=== PATIENT | female | born 1950 | race Caucasian/White ===

== ENCOUNTER 2021-06-29 01:14 | Inpatient (IN) ==
[2021-06-29] MEDS ORDERED: LACTATED RINGERS 1,000 ML IV ONE ×2 (01:37→03:46)
--- NOTE | 2021-06-29 02:40 | Emergency Department Note ---
HPI General Chief complaint: Altered Mental Status Stated complaint: altered mental status Time Seen by Provider: 06/29/21 01:19 Source: EMS Mode of arrival: ambulatory Limitations: altered mental status History of Present Illness HPI Narrative: Narrative: 71-year-old female history of Sjogren's syndrome, hypertension, anxiety, depression, manic episode, hypothyroid, presenting to the ED for altered mental status/bizarre behavior this seems to have been slowly building over some time but acutely worsened since at least 3 days ago. Patient is altered/not willing or able to answer questions, unable to obtain history from her. History is obtained from zcak Thomas [phone], and the college student who also lives at the patient's house, Hebertpreet [phone]. Neighbor states patient has seemed to have some degree of unknown mental illness for perhaps years now where she would have episodes of acting somewhat manic or bizarre but unsure if ever diagnosed or on any type of treatment. The student who lives with her says she also has had some mild bizarre episodes from time to time but seem to acutely worsen or become confused Monday. Has been pacing, making bizarre and repeated statements. Student said she also tripped and fell once injuring her nose a couple days ago and had to help her up. Does not believe she drinks or uses any substances or started any new medications. No recent travel reported. No known infectious complaints. Neighbor states she used to drink alcohol in years past but stopped more than a year ago. No further history obtainable Related Data Home Medications Medication Instructions Recorded Confirmed albuterol sulfate 90 mcg/actuation 2 puff INHALATION QID PRN 11/21/19 05/03/21 aerosol inhaler (ProAir HFA) clindamycin phosphate 1 % topical 1 applic TOPICAL BID 11/21/19 05/03/21 gel clobetasol 0.05 % topical ointment 1 applic TOPICAL PRN g 11/21/19 05/03/21 diclofenac sodium 1 % topical gel 2 g TOPICAL DIRECTED g 11/21/19 05/03/21 (Voltaren) fluticasone propionate 50 1 spray INTRANASAL .COMPLEX 11/21/19 05/03/21 mcg/actuation nasal spray,suspension ipratropium 0.5 mg-albuterol 3 mg 3 ml INHALATION BID PRN ml 11/21/19 05/03/21 (2.5 mg base)/3 mL nebulization soln ketoconazole 2 % topical cream 1 applic TOPICAL BID 11/21/19 05/03/21 ondansetron HCl 4 mg tablet 4 mg PO Q6H PRN tab 11/21/19 05/03/21 phenazopyridine 200 mg tablet 200 mg PO TID 11/21/19 05/03/21 halobetasol propionate 0.05 % 1 applic TOPICAL BID 12/15/20 05/03/21 topical ointment flaxseed PO 02/22/21 05/03/21 magnesium chloride [magnesium] PO 02/22/21 05/03/21 multivitamin [Daily Multi-Vitamin] PO 02/22/21 05/03/21 zinc gluconate-vitamin C [zinc] PO 02/22/21 05/03/21 Previous Rx's Medication Instructions Recorded lidocaine 5 % topical ointment 1 applic TOPICAL QID PRN #35.44 g 05/27/19 diclofenac epolamine 1.3 % 1 patch TOPICAL Q12H #30 each 12/17/19 transdermal 12 hour patch (Flector) sumatriptan succinate 100 mg 100 mg PO PRN #14 tab 06/18/20 tablet (Imitrex) levothyroxine 100 mcg tablet 100 mcg PO DAILY #30 tab 09/07/20 desonide 0.05 % topical ointment 1 applic TOPICAL BID #15 g 09/10/20 estradiol 0.1 mg/24 hr semiweekly 1 patch TRANSDERMA 2XW #8 each 09/10/20 transdermal patch pentosan polysulfate sodium 100 mg 100 mg PO QID #120 cap 11/05/20 capsule (Elmiron) losartan 100 1 tab PO QDAY #90 tab 12/09/20 mg-hydrochlorothiazide 12.5 mg tablet alprazolam 0.25 mg tablet See Rx Instructions .ROUTE 03/01/21 .COMPLEX #120 unknown measurement unit code: tablet baclofen 20 mg tablet See Rx Instructions .ROUTE 03/09/21 .COMPLEX #120 tab montelukast 10 mg tablet See Rx Instructions .ROUTE 03/09/21 .COMPLEX #30 tab propranolol 120 mg capsule,24 120 mg PO QHS #90 cap 03/09/21 hr,extended release imipramine HCl 50 mg tablet See Rx Instructions .ROUTE 03/16/21 .COMPLEX #60 tab zolpidem 10 mg tablet (Ambien) See Rx Instructions PO QHS #45 tab 04/07/21 cephalexin 500 mg capsule 500 mg PO TID #30 cap 05/07/21 clonidine HCl 0.1 mg tablet See Rx Instructions .ROUTE 05/17/21 .COMPLEX #180 tab triamcinolone acetonide 0.1 % See Rx Instructions .ROUTE 05/17/21 dental paste .COMPLEX #5 g acyclovir 800 mg tablet See Rx Instructions .ROUTE 06/01/21 .COMPLEX #120 tab buprenorphine HCl 8 mg sublingual 8 mg SUBLINGUAL QID #120 tab 06/08/21 tablet Allergies Allergy/AdvReac Type Severity Reaction Status Date / Time No Known Drug Allergies Allergy Verified 05/03/21 09:50 Review of Systems ROS ROS Narrative: Narrative: Unobtainable given acuity PFSH Narrative Patient History Narrative: Narrative: Medical/Surgical/Family History All Active Problems (Updated 06/29/21 @ 07:55 by Nickolas Conklin DO) Acute UTI (Acute) Altered mental status (Acute) Bizarre behavior (Acute) Arthritis of ankle or foot, degenerative (Acute) Facial contusion (Chronic) Interstitial cystitis (Chronic) Increased frequency of urination (Chronic) Dysuria (Chronic) Hematuria (Chronic) Migraine (Chronic) Chronic sinusitis (Chronic) Chronic low back pain (Chronic) Hypothyroid (Chronic) Bilateral carpal tunnel syndrome (Chronic) Squamous cell carcinoma of skin (Chronic) DVT (deep venous thrombosis) (Chronic) Insomnia (Chronic) Anxiety (Chronic) Allergic rhinitis (Chronic) Hyperlipidemia (Chronic) Blepharoconjunctivitis (Chronic) Dermatochalasis of eyelid (Chronic) Age-related nuclear cataract of both eyes (Chronic) Pain with urination (Chronic) Back pain (Chronic) Muscle cramps (Chronic) Muscle stiffness (Chronic) Anxiety disorder due to medical condition (Chronic) Other termination clerk (current) drug therapy (Chronic) Other specified dorsopathies, thoracic region (Chronic) Hypertension, essential, benign (Chronic) half-way (current) use of opiate analgesic (Chronic) Arthritis of right hip (Chronic) Dupuytren's disease (Chronic) Acute rhinitis (Chronic) Acute exacerbation of chronic bronchitis (Chronic) Post-menopausal (Chronic) Asthma (Chronic) Recurrent maxillary sinusitis (Chronic) Bee sting allergy (Chronic) Malignant melanoma of back (Chronic) Tinea corporis (Chronic) Unspecified disorder of muscle, ligament, and fascia (Chronic) Aphthous stomatitis (Chronic) Anemia (Chronic) Arthralgia (Chronic) Trapezius muscle spasm (Chronic) DDD (degenerative disc disease), cervical (Chronic ~05/2003) Gastroparesis (Chronic) Hypertension (Chronic) 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 and external auditory canal (Chronic) Manic episode (Chronic) Acute exacerbation of chronic bronchitis (Chronic) Initial Medicare annual wellness visit (Chronic) Left foot drop (Chronic) Lumbosacral radiculopathy due to degenerative joint disease of spine (Chronic) Acute URI (Chronic) Radiculopathy, lumbar region (Chronic) Breakdown (mechanical) of other implanted electronic stimulator of nervous system, initial encounter (Chronic) Osteoarthritis of right shoulder (Chronic) Muscle pain, myofascial (Chronic) Cervicalgia (Chronic) Shoulder joint pain (Chronic) Encounter for long-term (current) use of other medications (Chronic) Trochanteric bursitis (Chronic) Anxiety disorder (Chronic) Depression (Chronic) GERD (gastroesophageal reflux disease) (Chronic) Cervical radiculopathy (Chronic) Radiculopathy, lumbar region (Acute) Dermatitis (Acute) Elevated antinuclear antibody (ROSALIND) level (Chronic) Eczema (Chronic) ROSALIND positive (Acute) Abnormal immunological finding in serum (Acute) Sjogrens syndrome (Acute) Medical History Abnormal immunological finding in serum Acute exacerbation of chronic bronchitis Acute rhinitis Age-related nuclear cataract of both eyes Allergic rhinitis ROSALIND positive Anemia Anxiety Anxiety disorder Anxiety disorder due to medical condition Aphthous stomatitis Arthralgia Arthritis of right hip Asthma Back pain Bee sting allergy Bilateral carpal tunnel syndrome Blepharoconjunctivitis Breakdown (mechanical) of other implanted electronic stimulator of nervous system, initial encounter Cervical radiculopathy Cervicalgia Chronic low back pain Chronic sinusitis DDD (degenerative disc disease), cervical (~05/2003) W/Radiculopathy. C5-6 left nerve root disc Depression Dermatochalasis of eyelid Right Dupuytren's disease "Of Finger" DVT (deep venous thrombosis) Dysuria Eczema Elevated antinuclear antibody (ROSALIND) level Encounter for long-term (current) use of other medications Facial contusion Gastroparesis GERD (gastroesophageal reflux disease) Hematuria Hyperlipidemia Hypertension benign essential Hypertension, essential, benign Hypothyroid Increased frequency of urination Insomnia Interstitial cystitis buttermaker continuous churn (current) use of opiate analgesic Malignant melanoma of back Manic episode Migraine Muscle cramps Muscle pain, myofascial Muscle stiffness Osteoarthritis of right shoulder Other termination clerk (current) drug therapy Other specified dorsopathies, thoracic region Pain with urination Post-menopausal Radiculopathy, lumbar region Radiculopathy, lumbar region Recurrent maxillary sinusitis Shoulder joint pain Sjogrens syndrome Squamous cell carcinoma of skin Right Ear 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 and external auditory canal Tinea corporis Trapezius muscle spasm Trochanteric bursitis Unspecified disorder of muscle, ligament, and fascia Surgical History History of surgery BRIA #1 w/cath, w/sed 04/14/20 TF NATIVIDAD #1 Lt L4-5 w/o sed 03/18/2007/31 Revision/ Removal of SCS Generator w/ sed 07/20/201801/29 BRIA #1 w/cath, w/o sed 01/15/1801/29 Trigger Point Injection w/o sed 01/15/1801/29 Shoulder Joint Injection, rigth w/o sed 01/15/18 S/P breast biopsy S/P hysterectomy S/P right knee surgery "Meniscus Tear Repair" S/P spinal surgery Spinal Stimulator Status post surgery "Skin Excision" Family History Sister Breast cancer Social History Smoking Status: Unknown if ever smoked Alcohol Intake Frequency: a few times a week Substance Use: does not use Exam Narrative Narrative: Narrative: Constitutional: normally developed, patient ambulated into the ED along with EMS shouting "hello," appears actually quite well-kept, purple dyed hair. No gross signs of trauma Head: Normocephalic, atraumatic, Eyes: No Icterus, PERRLA 4 mm ENT: Dry mucus membranes, no tongue fasciculations Neck: Supple, no midline tenderness Cardiac: Mildly tachycardic regular heart sounds, palpable radial, dorsalis pedis pulses, no peripheral edema Pulmonary: Normal respiratory effort. Breath sounds clear, no wheeze, rhonchi, rales, Gastrointestinal: Abdomen soft, non-distended, non-tender, Musculoskeletal: No gross deformities, well perfused. Extremities are all nontender range of motion intact and atraumatic Skin: warm, dry, no rash no diaphoresis Neuro: Patient appears alert although mostly nonverbal, seems to understand questions and statements and will shake her head in response but will not ve rbalize answers. She is spontaneously moving all 4 extremities with full strength but will not follow commands, if I raise or reposition or lower her extremities she will then hold it in that position. Extraocular movements are intact pupils are equal and responsive, no anisocoria, no clonus, briskly localizes pain in all extremities. Seems to have some aphasia with some nonsensical speech but no dysarthria. GCS 4-3-5, 12. NIH of 6; does not answer questions appropriately, does not follow commands, has questionable aphasia with fragmentary speech, but no dysarthria General Limitations: altered mental status Course Vital Signs Vital signs: Vital Signs Temperature 36.1 C 06/29/21 01:15 Pulse Rate 114 H 06/29/21 01:15 Respiratory Rate 24 H 06/29/21 01:15 Blood Pressure 181/107 06/29/21 01:15 Pulse Oximetry (%) 96 06/29/21 01:15 Temperature 36.1 C 06/29/21 01:15 Pulse Rate 119 H 06/29/21 04:16 Respiratory Rate 24 H 06/29/21 01:15 Blood Pressure 154/114 06/29/21 07:01 Pulse Oximetry (%) 97 06/29/21 04:16 [facility] Narrative Medical decision making narrative: Narrative: Patient is presenting to the ED for altered mental status, bizarre behavior. Exam detailed as above vitals are mildly tachycardic and tachypneic. She appears well Nontoxic but perhaps a bit anxious/bizarre She is moving all 4 extremities with full strength but will not follow commands however does appear to understand all of her questions because she will not in response. She is alert not somnolent. She does not meet any stroke criteria symptoms have been ongoing for at least 3 days if not longer. DDx: mental health, substance use, neurologic, metabolic, infectious, other. Broad work-up is initiated, is given initial fluids. Twelve-lead EKG shows sinus tachycardia 119 WI, QRS, QTc within normal, no acute ischemia noted no terminal R wave in aVR. Head CT shows nonspecific periventricular white matter likely chronic small vessel ischemia, atrophy Urine dip positive for infection Chest x-ray negative CBC no leukocytosis no anemia Electrolytes show no significant abnormality, AST tracely elevated ALT normal, CPK 570 Urinalysis does show infection with nitrates, leukocyte esterase, WBCs, many bacteria Lactic acid is normal 2.0 Ethanol acetaminophen and salicylate negative Urine and blood cultures obtained patient started on Rocephin Reevaluation she appears a bit more comfortable but still confused but answering some questions occasionally and will nod yes or no to questions. Will trial a dose of zyprexa for her bizarre behavior, and also gave her a dose of her clonidine which she is due for, for her hypertension. 0700: Spoke with Dr Abreu neurologist at [place] to discuss case. Discussed in depth, she does not suspect this to be a primary or central neurologic cause nor hypertensive emergency. Suspects this is possibly a flareup of a underlying psychiatric condition secondary to her UTI. Does recommend medical admission here for further treatment of her UTI and behavior and monitor for resolution. Have spoken with Dr. Jc who accepts admission. Lab Data Result diagrams: 06/29/21 01:51 06/29/21 01:50 Labs: Lab Results 06/29/21 06/29/21 06/29/21 Range/Units 01:50 01:51 01:51 WBC 10.6 (4.5-11.0) K/mcL RBC 4.64 (3.59-5.38) M/mcL Hgb 14.8 (11.2-15.7) g/dL Hct 43.1 (34.1-44.9) % MCV 92.9 (80.0-100.0) fL MCH 31.9 (26.0-34.0) pg MCHC 34.3 (31.0-36.0) g/dL RDW 11.6 (11.5-14.5) % Plt Count 272 (140-440) K/mcL MPV 12.0 H (7.4-10.4) fL Neut % (Auto) 77.1 (38.0-78.0) % Lymph % (Auto) 13.1 L (15.5-49.0) % Crowley % (Auto) 9.5 (1.0-12.0) % Eos % (Auto) 0.1 (0.0-7.0) % Baso % (Auto) 0.2 (0.0-2.0) % Lymph # (Auto) 1.39 L (1.50-4.80) K/mcL Crowley # (Auto) 1.01 H (0.10-0.90) K/mcL Eos # (Auto) 0.01 (0.00-0.70) K/mcL Baso # (Auto) 0.02 (0.00-0.30) K/mcL Absolute Neutrophils 8.20 H (1.80-8.00) K/mcL VBG Lactic Acid 2.0 (0.5-2.0) mmol/L Sodium 135 (133-145) mmol/L Potassium 3.5 (3.3-5.1) mmol/L Chloride 95 L (96-108) mmol/L Carbon Dioxide 22 (22-30) mmol/L Anion Gap 18.0 H (8.0-16.0) BUN 22 (8-23) mg/dL Creatinine 0.7 (0.6-1.1) mg/dL GFR Calculation 88 Glucose 110 H (70-105) mg/dL Calcium 9.9 (8.6-10.4) mg/dL Total Bilirubin 0.8 (0.1-1.0) mg/dL AST 52 H (<32) U/L ALT 27 (<40) U/L Alkaline Phosphatase 97 (39-117) U/L Total Creatine Kinase 575 H (24-170) U/L Total Protein 7.4 (5.9-8.4) gm/dL Albumin 4.8 (3.2-5.2) gm/dL Globulin 2.6 (2.2-3.7) gm/dL Albumin/Globulin Ratio 1.8 (1.0-2.3) Urine Color Urine Appearance (Clear) Urine pH (5.0-9.0) Ur Specific [place] (1.000-1.035) Urine Protein (Negative) mg/dL Urine Glucose (UA) (Negative) mg/dL Urine Ketones (Negative) mg/dL Urine Occult Blood (Negative) mg/dL Urine Nitrate (Negative) Urine Bilirubin (Negative) mg/dL Urine Urobilinogen mg/dL Ur Leukocyte Esterase (Negative) /uL Urine RBC (0-3) /hpf Urine WBC (0-4) /hpf Ur Squamous Epith Cells (0-4) /hpf Urine Bacteria (0) /hpf Urine Mucus (None) /hpf Ur Culture Indicated? Salicylates mg/dL Urine Opiates Screen Ur Opiates Confirm Ur Oxycodone Screen Urine Methadone Screen Ur Methadone Confirm Acetaminophen ug/mL Ur Barbiturates Screen Ur Barbiturate Confirm Ur Phencyclidine Scrn Urine PCP Confirm Ur Amphetamines Screen U Amphetamines Confirm U Benzodiazepines Scrn Urine Cocaine Screen Urine Cocaine Confirm U Cannabinoids Confirm U Marijuana (THC) Screen Ethyl Alcohol (<0.010) gm/dL 06/29/21 06/29/21 06/29/21 Range/Units 01:53 01:53 01:53 WBC (4.5-11.0) K/mcL RBC (3.59-5.38) M/mcL Hgb (11.2-15.7) g/dL Hct (34.1-44.9) % MCV (80.0-100.0) fL MCH (26.0-34.0) pg MCHC (31.0-36.0) g/dL RDW (11.5-14.5) % Plt Count (140-440) K/mcL MPV (7.4-10.4) fL Neut % (Auto) (38.0-78.0) % Lymph % (Auto) (15.5-49.0) % Crowley % (Auto) (1.0-12.0) % Eos % (Auto) (0.0-7.0) % Baso % (Auto) (0.0-2.0) % Lymph # (Auto) (1.50-4.80) K/mcL Crowley # (Auto) (0.10-0.90) K/mcL Eos # (Auto) (0.00-0.70) K/mcL Baso # (Auto) (0.00-0.30) K/mcL Absolute Neutrophils (1.80-8.00) K/mcL VBG Lactic Acid (0.5-2.0) mmol/L Sodium (133-145) mmol/L Potassium (3.3-5.1) mmol/L Chloride (96-108) mmol/L Carbon Dioxide (22-30) mmol/L Anion Gap (8.0-16.0) BUN (8-23) mg/dL Creatinine (0.6-1.1) mg/dL GFR Calculation Glucose (70-105) mg/dL Calcium (8.6-10.4) mg/dL Total Bilirubin (0.1-1.0) mg/dL AST (<32) U/L ALT (<40) U/L Alkaline Phosphatase (39-117) U/L Total Creatine Kinase (24-170) U/L Total Protein (5.9-8.4) gm/dL Albumin (3.2-5.2) gm/dL Globulin (2.2-3.7) gm/dL Albumin/Globulin Ratio (1.0-2.3) Urine Color Urine Appearance (Clear) Urine pH (5.0-9.0) Ur Specific [place] (1.000-1.035) Urine Protein (Negative) mg/dL Urine Glucose (UA) (Negative) mg/dL Urine Ketones (Negative) mg/dL Urine Occult Blood (Negative) mg/dL Urine Nitrate (Negative) Urine Bilirubin (Negative) mg/dL Urine Urobilinogen mg/dL Ur Leukocyte Esterase (Negative) /uL Urine RBC (0-3) /hpf Urine WBC (0-4) /hpf Ur Squamous Epith Cells (0-4) /hpf Urine Bacteria (0) /hpf Urine Mucus (None) /hpf Ur Culture Indicated? Salicylates mg/dL Urine Opiates Screen None detected Ur Opiates Confirm TNP Ur Oxycodone Screen None detected Urine Methadone Screen None detected Ur Methadone Confirm TNP Acetaminophen < 5.0 ug/mL Ur Barbiturates Screen None detected Ur Barbiturate Confirm TNP Ur Phencyclidine Scrn None detected Urine PCP Confirm TNP Ur Amphetamines Screen None detected U Amphetamines Confirm TNP U Benzodiazepines Scrn Suspect positive A Urine Cocaine Screen None detected Urine Cocaine Confirm TNP U Cannabinoids Confirm TNP U Marijuana (THC) Screen None detected Ethyl Alcohol < 0.010 (<0.010) gm/dL 06/29/21 06/29/21 Range/Units 01:59 02:09 WBC (4.5-11.0) K/mcL RBC (3.59-5.38) M/mcL Hgb (11.2-15.7) g/dL Hct (34.1-44.9) % MCV (80.0-100.0) fL MCH (26.0-34.0) pg MCHC (31.0-36.0) g/dL RDW (11.5-14.5) % Plt Count (140-440) K/mcL MPV (7.4-10.4) fL Neut % (Auto) (38.0-78.0) % Lymph % (Auto) (15.5-49.0) % Crowley % (Auto) (1.0-12.0) % Eos % (Auto) (0.0-7.0) % Baso % (Auto) (0.0-2.0) % Lymph # (Auto) (1.50-4.80) K/mcL Crowley # (Auto) (0.10-0.90) K/mcL Eos # (Auto) (0.00-0.70) K/mcL Baso # (Auto) (0.00-0.30) K/mcL Absolute Neutrophils (1.80-8.00) K/mcL VBG Lactic Acid (0.5-2.0) mmol/L Sodium (133-145) mmol/L Potassium (3.3-5.1) mmol/L Chloride (96-108) mmol/L Carbon Dioxide (22-30) mmol/L Anion Gap (8.0-16.0) BUN (8-23) mg/dL Creatinine (0.6-1.1) mg/dL GFR Calculation Glucose (70-105) mg/dL Calcium (8.6-10.4) mg/dL Total Bilirubin (0.1-1.0) mg/dL AST (<32) U/L ALT (<40) U/L Alkaline Phosphatase (39-117) U/L Total Creatine Kinase (24-170) U/L Total Protein (5.9-8.4) gm/dL Albumin (3.2-5.2) gm/dL Globulin (2.2-3.7) gm/dL Albumin/Globulin Ratio (1.0-2.3) Urine Color Bridgett Urine Appearance Hazy A (Clear) Urine pH 5.0 (5.0-9.0) Ur Specific [place] 1.025 (1.000-1.035) Urine Protein 30 A (Negative) mg/dL Urine Glucose (UA) Negative (Negative) mg/dL Urine Ketones 20 A (Negative) mg/dL Urine Occult Blood Negative (Negative) mg/dL Urine Nitrate Pos A (Negative) Urine Bilirubin Negative (Negative) mg/dL Urine Urobilinogen Negative mg/dL Ur Leukocyte Esterase 75 A (Negative) /uL Urine RBC 1 (0-3) /hpf Urine WBC 37 H (0-4) /hpf Ur Squamous Epith Cells 0 (0-4) /hpf Urine Bacteria Many A (0) /hpf Urine Mucus Few A (None) /hpf Ur Culture Indicated? yes Salicylates < 0.3 mg/dL Urine Opiates Screen Ur Opiates Confirm Ur Oxycodone Screen Urine Methadone Screen Ur Methadone Confirm Acetaminophen ug/mL Ur Barbiturates Screen Ur Barbiturate Confirm Ur Phencyclidine Scrn Urine PCP Confirm Ur Amphetamines Screen U Amphetamines Confirm U Benzodiazepines Scrn Urine Cocaine Screen Urine Cocaine Confirm U Cannabinoids Confirm U Marijuana (THC) Screen Ethyl Alcohol (<0.010) gm/dL Discharge Plan Patient/Caregiver Discharge Instructions Pt seen by CLIENT TECHNICAL SUPPORT ASSOCIATE/PA only: No Clinical Impression: Acute UTI, Altered mental status, Bizarre behavior Patient Disposition: Xfer As Inpt ([facility]) Condition: Fair Follow up with: Doug Bentley MD [Primary Care Provider] - Prescriptions: No Action lidocaine 5 % ointment 1 applic TOPICAL QID PRN (Reason: pain) Qty: 35.44 5RF diclofenac epolamine [Flector] 1.3 % patch 12 hour 1 patch TOPICAL Q12H Qty: 30 0RF Rx Instructions: apply patch to affected area every 12 hours sumatriptan succinate [Imitrex] 100 mg tablet 100 mg PO PRN Qty: 14 6RF Rx Instructions: 1 po PRN levothyroxine 100 mcg tablet 100 mcg PO DAILY Qty: 30 11RF Elmiron 100 mg capsule 100 mg PO QID Qty: 120 11RF Rx Instructions: 1 po QID losartan-hydrochlorothiazide 100-12.5 mg tablet 1 tab PO QDAY Qty: 90 5RF Rx Instructions: 1 po Qday alprazolam 0.25 mg tablet See Rx Instructions .ROUTE .COMPLEX Qty: 120 5RF Dose Instruction: TAKE 1 TABLET BY MOUTH EVERY 6 HOURS NEEDED FOR ANXIETY Rx Instructions: TAKE 1 TABLET BY MOUTH EVERY 6 HOURS NEEDED FOR ANXIETY propranolol 120 mg capsule,extended release 24 hr 120 mg PO QHS Qty: 90 1RF Rx Instructions: 1 po QHS baclofen 20 mg tablet See Rx Instructions .ROUTE .COMPLEX Qty: 120 5RF Dose Instruction: TAKE 1 TABLET BY MOUTH FOUR TIMES DAILY Rx Instructions: 10mg qid montelukast 10 mg tablet See Rx Instructions .ROUTE .COMPLEX Qty: 30 10RF Dose Instruction: TAKE 1 TABLET BY MOUTH ONCE DAILY Rx Instructions: TAKE 1 TABLET BY MOUTH ONCE DAILY imipramine HCl 50 mg tablet See Rx Instructions .ROUTE .COMPLEX Qty: 60 1RF Dose Instruction: TAKE 1 TABLET BY MOUTH TWICE DAILY NEEDS FOLLOW UP PLEASE CONTACT DR OFFICE Rx Instructions: TAKE 1 TABLET BY MOUTH TWICE DAILY NEEDS FOLLOW UP PLEASE CONTACT DR OFFICE zolpidem [Ambien] 10 mg tablet See Rx Instructions PO QHS Qty: 45 2RF Rx Instructions: 10mg, 1-2 tabs PO QHS; triamcinolone acetonide 0.1 % paste See Rx Instructions .ROUTE .COMPLEX Qty: 5 4RF Dose Instruction: APPLY TWICE DAILY AFTER FOOD / DRINK OR ORAL HYGIENE Rx Instructions: APPLY TWICE DAILY AFTER FOOD / DRINK OR ORAL HYGIENE clonidine HCl 0.1 mg tablet See Rx Instructions .ROUTE .COMPLEX Qty: 180 3RF Dose Instruction: TAKE 1 TABLET BY MOUTH TWICE DAILY Rx Instructions: TAKE 1 TABLET BY MOUTH TWICE DAILY acyclovir 800 mg tablet See Rx Instructions .ROUTE .COMPLEX Qty: 120 5RF Dose Instruction: TAKE 1 TABLET BY MOUTH FOUR TIMES DAILY Rx Instructions: TAKE 1 TABLET BY MOUTH FOUR TIMES DAILY buprenorphine HCl 8 mg tablet, sublingual 8 mg SUBLINGUAL QID Qty: 120 0RF phenazopyridine 200 mg tablet 200 mg PO TID 0RF Rx Instructions: 1 po TID diclofenac sodium [Voltaren] 1 % gel 2 g TOPICAL DIRECTED 0RF Rx Instructions: apply to affected area as directed fluticasone propionate 50 mcg/actuation spray,suspension 1 spray INTRANASAL .COMPLEX 0RF Label Comments: 1 spray INTRANASAL ; Rx Instructions: 1 spray each nostril albuterol sulfate [ProAir HFA] 90 mcg/actuation HFA aerosol inhaler 2 puff INHALATION QID PRN (Reason: Wheezing) 0RF Rx Instructions: 2 puffs QID PRN on HOLD ondansetron HCl 4 mg tablet 4 mg PO Q6H PRN (Reason: Nausea) 0RF Rx Instructions: 1 po Q 5 hours Prn clindamycin phosphate 1 % gel 1 applic TOPICAL BID 0RF Rx Instructions: apply to affected area twice daily ketoconazole 2 % cream 1 applic TOPICAL BID 0RF Rx Instructions: apply BID to face ipratropium-albuterol 0.5 mg-3 mg(2.5 mg base)/3 mL solution for nebulization 3 ml INHALATION BID PRN (Reason: Wheezing) 0RF Rx Instructions: 1 vial in nebulizer BID x 7 days zinc gluconate-vitamin C [zinc] PO 0RF magnesium chloride [magnesium] PO 0RF multivitamin [Daily Multi-Vitamin] PO 0RF flaxseed PO 0RF desonide 0.05 % ointment 1 applic TOPICAL BID Qty: 15 5RF estradiol 0.1 mg/24 hr patch semiweekly 1 patch TRANSDERMA 2XW Qty: 8 12RF Rx Instructions: apply 1 patch for 3 days alternating with 1 patch for 4 days each week for 3 wks per 4-wk cycle cephalexin 500 mg capsule 500 mg PO TID Qty: 30 1RF halobetasol propionate 0.05 % ointment 1 applic topical BID 0RF clobetasol 0.05 % ointment 1 applic TOPICAL PRN 0RF Rx Instructions: PRN
--- NOTE | 2021-06-29 03:01 | XRay Report ---
CLINICAL INFORMATION: Acute mental status change COMPARISON: 08/09/2018 TECHNIQUE: Portable FINDINGS: The heart size, mediastinum and pulmonary vessels are unremarkable. The lungs are clear. There are no effusions. The bones and soft tissues are within normal limits. IMPRESSION: Normal chest. Interpreted and Authenticated by: Rubén Phillips 06/29/21
[2021-06-29 03:05] LABS: Basophils # (Auto) 0.02 K/mcL (0.00-0.30); Basophils % (Auto) 0.2 % (0.0-2.0); Eosinophils # (Auto) 0.01 K/mcL (0.00-0.70); Eosinophils % (Auto) 0.1 % (0.0-7.0); Hematocrit 43.1 % (34.1-44.9); Hemoglobin 14.8 g/dL (11.2-15.7); Lymphocytes # (Auto) 1.39 K/mcL (1.50-4.80); Lymphocytes % (Auto) 13.1 % (15.5-49.0); Mean Cell Volume 92.9 fL (80.0-100.0); Mean Corpuscular HGB Conc 34.3 g/dL (31.0-36.0); Monocytes # (Auto) 1.01 K/mcL (0.10-0.90); Monocytes % (Auto) 9.5 % (1.0-12.0); Neutrophils % (Auto) 77.1 % (38.0-78.0); Platelet Count 272 K/mcL (140-440); RBC 4.64 M/mcL (3.59-5.38); Red Cell Distribution Width 11.6 % (11.5-14.5); WBC 10.6 K/mcL (4.5-11.0)
--- NOTE | 2021-06-29 03:07 | Cat Scan Report ---
CLINICAL INFORMATION: Altered mental status COMPARISON: None. TECHNIQUE: 2.5 mm helical slices were obtained in the skull base to vertex. Following reconstruction, axial reformatted images were reviewed at bone and parenchymal windows. The exam was performed using radiation dose optimization techniques including, but not limited to, automated exposure control, adjustment of the mA and/or kV according to patient size and use of iterative reconstruction technique. FINDINGS: The ventricles, sulci, fissures, and cisterns are normal in size and configuration. No extra-axial fluid collections are identified. The cerebrum, brainstem and cerebellum are unremarkable. There is no evidence of hemorrhage, mass effect, or edema. Bone windows show mild enlargement and sclerosis of the left mandibular condyle which may be stigmata of remote trauma or inflammation. IMPRESSION: No intracerebral abnormality. Interpreted and Authenticated by: Rubén Phillips 06/29/21
[2021-06-29 03:16] LABS: Appearance,Urine HAZY (Clear); Bacteria,Urine MANY /hpf (0); Bilirubin,Urine Negative (Negative); Color,Urine AMBER; Culture Indicated,Urine yes; Glucose,Urine (UA) Negative (Negative); Ketones,Urine 20 mg/dL (Negative); Leukocyte Esterase,Urine 75 /uL (Negative); Mucus,Urine FEW /hpf; Nitrate,Urine POS (Negative); Protein,Urine 30 mg/dL (Negative); Specific Gravity,Urine 1.025 (1.000-1.035); Urine Blood Negative (Negative); Urine RBC 1 /hpf (0-3); Urine Squamous Epithelial Cell 0 /hpf (0-4); Urine WBC 37 /hpf (0-4); Urobilinogen,Urine Negative
[2021-06-29 03:34] LABS: ALT/SGPT 27 U/L (<40); AST/SGOT 52 U/L (<32); Albumin 4.8 gm/dL (3.2-5.2); Albumin/Globulin Ratio 1.8 (1.0-2.3); Alkaline Phosphatase 97 U/L (39-117); Bilirubin,Total 0.8 mg/dL (0.1-1.0); Blood Urea Nitrogen 22 mg/dL (8-23); Calcium 9.9 mg/dL (8.6-10.4); Carbon Dioxide 22 mmol/L (22-30); Chloride 95 mmol/L (96-108); Creatine Kinase 575 U/L (24-170); Globulin 2.6 gm/dL (2.2-3.7); Glomerular Filtration Rate 88; Glucose 110 mg/dL (70-105)
[2021-06-29 03:39] LABS: Alcohol, Blood < 10.0 mg/dL; Alcohol,Blood < 0.010 gm/dL (<0.010)
[2021-06-29] MEDS ORDERED: cefTRIAXone 1 GM VIAL IV ONE (03:42)
[2021-06-29 04:46] LABS: Amphetamine Screen,Urine None detected; Barbiturate Screen,Urine None detected; Benzodiazepines Screen,Urine Suspect positive; Cannabinoid Screen,Urine None detected; Cocaine Screen,Urine None detected; Opiate Screen,Urine None detected; Oxycodone, Urine Screen None detected; Phencyclidine Screen,Urine None detected
[2021-06-29] MEDS ORDERED: cloNIDine HCL 0.1 MG TABLET PO SCH (06:00)
[2021-06-29] MEDS ORDERED: LABETALOL 5 MG/ML ML IV ONE (06:51)
[2021-06-29] MEDS ORDERED: OLANZapine 2.5 MG TABLET PO ONE (07:10)
[2021-06-29] MEDS ORDERED: ONDANSETRON 4 MG/2 ML VIAL IV PRN ×2 (07:45→11:10)
[2021-06-29] MEDS: 0.9 % SODIUM CHLORIDE 1,000 ML IV SCH ×2 (09:00→19:05)
[2021-06-29] MEDS ORDERED: LABETALOL 5 MG/ML ML IV PRN (10:59)
--- NOTE | 2021-06-29 11:01 | Internal Med History&Physical ---
HPI History of Present Illness Patient information: Note initiated : 06/29/21 at 10:45 am Service Date, if different from initiated Date: [] Patient: Miranda Soriano 71 y/o F admitted on 06/29/21 for Altered Mental Status. Chief Complaint: [] History of present illness: Ms. Soriano is a 71 year old F EMS called because patient altered. Sustained a fall couple days ago and has not been right since per neighbors. Limited verbal response patient not head screamed yes occasionally in triage but not giving much history. Has a history of anxiety depression and a manic episode and hypothyroidism. Per history she has had altered mental status and bizarre behavior worsening over the past few days. History obtained from the neighbor Martha Silvestreiston [employer] student who lives with the patient. Emergency the patient had some degree of unknown mental illness for years where she did have episodes of acting manic or bizarre not sure if there is ever been any official diagnosis. The student reported that he said some bizarre episodes from time to time. Used to drink alcohol in the past but nothing in the past year per the neighbor. She was bit hypertensive which she came in and also found to have a UTI. Case was discussed with neurologist who did not feel it was hypertensive emergency or other central neurological etiology that needed further work-up or transfer -felt it was likely related to underlying psych in the setting of UTI. CT brain was unremarkable. She was afebrile and besides elevated blood pressure she had mild tachycardia but otherwise no other abnormalities on vitals. CBC and lactate unremarkable. Chemistry unimpressive other than a mild elevation in creatinine kinase likely related to her fall. Urine consistent with urinary tract infection. UDS unremarkable including alcohol. Unable to obtain review of systems given altered mental status. When asking her some questions she nods her head mostly yes occasional she will not know seem to sometimes her nodding make sense and sometimes it does not add contradictory. PFSH PFSH All Active Problems (Updated 06/29/21 @ 07:55 by Nickolas Conklin DO) Acute UTI (Acute) Altered mental status (Acute) Bizarre behavior (Acute) Arthritis of ankle or foot, degenerative (Acute) Facial contusion (Chronic) Interstitial cystitis (Chronic) Increased frequency of urination (Chronic) Dysuria (Chronic) Hematuria (Chronic) Migraine (Chronic) Chronic sinusitis (Chronic) Chronic low back pain (Chronic) Hypothyroid (Chronic) Bilateral carpal tunnel syndrome (Chronic) Squamous cell carcinoma of skin (Chronic) DVT (deep venous thrombosis) (Chronic) Insomnia (Chronic) Anxiety (Chronic) Allergic rhinitis (Chronic) Hyperlipidemia (Chronic) Blepharoconjunctivitis (Chronic) Dermatochalasis of eyelid (Chronic) Age-related nuclear cataract of both eyes (Chronic) Pain with urination (Chronic) Back pain (Chronic) Muscle cramps (Chronic) Muscle stiffness (Chronic) Anxiety disorder due to medical condition (Chronic) Other predatory animal exterminator (current) drug therapy (Chronic) Other specified dorsopathies, thoracic region (Chronic) Hypertension, essential, benign (Chronic) FDC (current) use of opiate analgesic (Chronic) Arthritis of right hip (Chronic) Dupuytren's disease (Chronic) Acute rhinitis (Chronic) Acute exacerbation of chronic bronchitis (Chronic) Post-menopausal (Chronic) Asthma (Chronic) Recurrent maxillary sinusitis (Chronic) Bee sting allergy (Chronic) Malignant melanoma of back (Chronic) Tinea corporis (Chronic) Unspecified disorder of muscle, ligament, and fascia (Chronic) Aphthous stomatitis (Chronic) Anemia (Chronic) Arthralgia (Chronic) Trapezius muscle spasm (Chronic) DDD (degenerative disc disease), cervical (Chronic ~05/2003) Gastroparesis (Chronic) Hypertension (Chronic) 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 and external auditory canal (Chronic) Manic episode (Chronic) Acute exacerbation of chronic bronchitis (Chronic) Initial Medicare annual wellness visit (Chronic) Left foot drop (Chronic) Lumbosacral radiculopathy due to degenerative joint disease of spine (Chronic) Acute URI (Chronic) Radiculopathy, lumbar region (Chronic) Breakdown (mechanical) of other implanted electronic stimulator of nervous system, initial encounter (Chronic) Osteoarthritis of right shoulder (Chronic) Muscle pain, myofascial (Chronic) Cervicalgia (Chronic) Shoulder joint pain (Chronic) Encounter for long-term (current) use of other medications (Chronic) Trochanteric bursitis (Chronic) Anxiety disorder (Chronic) Depression (Chronic) GERD (gastroesophageal reflux disease) (Chronic) Cervical radiculopathy (Chronic) Radiculopathy, lumbar region (Acute) Dermatitis (Acute) Elevated antinuclear antibody (FELI) level (Chronic) Eczema (Chronic) FELI positive (Acute) Abnormal immunological finding in serum (Acute) Sjogrens syndrome (Acute) Medical History Abnormal immunological finding in serum Acute exacerbation of chronic bronchitis Acute rhinitis Age-related nuclear cataract of both eyes Allergic rhinitis FELI positive Anemia Anxiety Anxiety disorder Anxiety disorder due to medical condition Aphthous stomatitis Arthralgia Arthritis of right hip Asthma Back pain Bee sting allergy Bilateral carpal tunnel syndrome Blepharoconjunctivitis Breakdown (mechanical) of other implanted electronic stimulator of nervous system, initial encounter Cervical radiculopathy Cervicalgia Chronic low back pain Chronic sinusitis DDD (degenerative disc disease), cervical (~05/2003) W/Radiculopathy. 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 Malignant melanoma of back Manic episode Migraine Muscle cramps Muscle pain, myofascial Muscle stiffness Osteoarthritis of right shoulder Other fci (current) drug therapy Other specified dorsopathies, thoracic region Pain with urination Post-menopausal Radiculopathy, lumbar region Radiculopathy, lumbar region Recurrent maxillary sinusitis Shoulder joint pain Sjogrens syndrome Squamous cell carcinoma of skin Right Ear 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 and external auditory canal Tinea corporis Trapezius muscle spasm Trochanteric bursitis Unspecified disorder of muscle, ligament, and fascia Surgical History History of surgery BRIA #1 w/cath, w/sed 04/14/20 TF NATIVIDAD #1 Lt L4-5 w/o sed 03/18/2007/31 Revision/ Removal of SCS Generator w/ sed 07/20/201801/29 BRIA #1 w/cath, w/o sed 01/15/1801/29 Trigger Point Injection w/o sed 01/15/1801/29 Shoulder Joint Injection, rigth w/o sed 01/15/18 S/P breast biopsy S/P hysterectomy S/P right knee surgery "Meniscus Tear Repair" S/P spinal surgery Spinal Stimulator Status post surgery "Skin Excision" Family History Sister Breast cancer Social History marital status: education level: college occupational status: retired alcohol intake frequency: a few times a week substance use type: does not use seatbelt use: always MEDS/ALLERGIES Home Medications and Allergies Home Medications Medication Instructions Recorded Confirmed Type albuterol sulfate 90 mcg/actuation 2 puff INHALATION QID PRN 11/21/19 06/29/21 History aerosol inhaler (ProAir HFA) clindamycin phosphate 1 % topical 1 applic TOPICAL BID 11/21/19 06/29/21 History gel diclofenac sodium 1 % topical gel 2 g TOPICAL DIRECTED PRN g 11/21/19 06/29/21 History (Voltaren) fluticasone propionate 50 1 spray INTRANASAL DAILYP PRN 11/21/19 06/29/21 History mcg/actuation nasal spray,suspension ipratropium 0.5 mg-albuterol 3 mg 3 ml INHALATION BID PRN ml 11/21/19 06/29/21 History (2.5 mg base)/3 mL nebulization soln phenazopyridine 200 mg tablet 200 mg PO TID 11/21/19 06/29/21 History levothyroxine 100 mcg tablet 100 mcg PO DAILY #30 tab 09/07/20 06/29/21 Rx estradiol 0.1 mg/24 hr semiweekly 1 patch TRANSDERMA 2XW #8 each 09/10/20 06/29/21 Rx transdermal patch pentosan polysulfate sodium 100 mg 100 mg PO QID #120 cap 11/05/20 06/29/21 Rx capsule (Elmiron) losartan 100 1 tab PO QDAY #90 tab 12/09/20 06/29/21 Rx mg-hydrochlorothiazide 12.5 mg tablet halobetasol propionate 0.05 % 1 applic TOPICAL BID 12/15/20 06/29/21 History topical ointment multivitamin [Daily Multi-Vitamin] 3 tab PO DAILY 02/22/21 06/29/21 History propranolol 120 mg capsule,24 120 mg PO QHS #90 cap 03/09/21 06/29/21 Rx hr,extended release zolpidem 10 mg tablet (Ambien) See Rx Instructions PO QHS #45 tab 04/07/21 06/29/21 Rx cephalexin 500 mg capsule 500 mg PO TID #30 cap 05/07/21 06/29/21 Rx triamcinolone acetonide 0.1 % See Rx Instructions .ROUTE 05/17/21 06/29/21 Rx dental paste .COMPLEX #5 g acyclovir 800 mg tablet See Rx Instructions .ROUTE 06/01/21 06/29/21 Rx .COMPLEX #120 tab buprenorphine HCl 8 mg sublingual 8 mg SUBLINGUAL QID #120 tab 06/08/21 06/29/21 Rx tablet alprazolam 0.25 mg tablet 0.25 mg PO Q6HP PRN 06/29/21 06/29/21 History baclofen 20 mg tablet 10 mg PO Q6H 06/29/21 06/29/21 History clonidine HCl 0.1 mg tablet 0.1 mg PO BID 06/29/21 06/29/21 History diclofenac epolamine 1.3 % 1 patch TOPICAL Q12H PRN 06/29/21 06/29/21 History transdermal 12 hour patch (Flector) imipramine HCl 50 mg tablet 50 mg PO BID 06/29/21 06/29/21 History ketorolac 0.5 % eye drops 1 drp OPHTHALMIC (EYE) DAILY 06/29/21 06/29/21 History montelukast 10 mg tablet 10 mg PO DAILY 06/29/21 06/29/21 History sumatriptan succinate 100 mg 100 mg PO PRN PRN 06/29/21 06/29/21 History tablet (Imitrex) Allergies Allergy/AdvReac Type Severity Reaction Status Date / Time No Known Drug Allergies Allergy Verified 06/29/21 09:36 EXAM Constitutional Vitals: Temp Pulse Resp BP Pulse Ox 99.0 F 112 H 24 H 138/99 99 06/29/21 09:00 06/29/21 09:01 06/29/21 01:15 06/29/21 09:01 06/29/21 09:01 Exam: General: Alert, Awake, No acute Distress Eyes/N/T: EOMI, PERRL, dry MM Head/Neck: neck supple, normocephalic atraumatic CV: Tacky but regular,, No murmurs, normal s1/s2 Pulm: Clear b/l, no wheezing/rhonchi/rales Abd: soft, nontender, +BS x4 Ext: no clubbing/cyanosis/edema Neuro: Alert, moves all extremities continuously. Nods to questions mostly yes sometimes no and it appears sometimes her responses appropriate but other times does not make any sense and occasionally contradictory with my questions She is nonverbal. skin: warm/dry DATA Data Completed and Pending Labs: Labs from last 24 hours 06/29/21 06/29/21 06/29/21 02:09 01:59 01:53 WBC RBC Hgb Hct MCV MCH MCHC RDW Plt Count MPV Neut % (Auto) Lymph % (Auto) [place] % (Auto) Eos % (Auto) Baso % (Auto) Lymph # (Auto) [place] # (Auto) Eos # (Auto) Baso # (Auto) Absolute Neutrophils VBG Lactic Acid Sodium Potassium Chloride Carbon Dioxide Anion Gap BUN Creatinine GFR Calculation Glucose Calcium Total Bilirubin AST ALT Alkaline Phosphatase Total Creatine Kinase Total Protein Albumin Globulin Albumin/Globulin Ratio Urine Color Bridgett Urine Appearance Hazy A Urine pH 5.0 Ur Specific [place] 1.025 Urine Protein 30 A Urine Glucose (UA) Negative Urine Ketones 20 A Urine Occult Blood Negative Urine Nitrate Pos A Urine Bilirubin Negative Urine Urobilinogen Negative Ur Leukocyte Esterase 75 A Urine RBC 1 Urine WBC 37 H Ur Squamous Epith Cells 0 Urine Bacteria Many A Urine Mucus Few A Ur Culture Indicated? yes Salicylates < 0.3 Urine Opiates Screen Ur Opiates Confirm Ur Oxycodone Screen Urine Methadone Screen Ur Methadone Confirm Acetaminophen Ur Barbiturates Screen Ur Barbiturate Confirm Ur Phencyclidine Scrn Urine PCP Confirm Ur Amphetamines Screen U Amphetamines Confirm U Benzodiazepines Scrn U Benzodiazepine Confm Urine Cocaine Screen Urine Cocaine Confirm U Cannabinoids Confirm U Marijuana (THC) Screen Ethyl Alcohol < 0.010 06/29/21 06/29/21 06/29/21 01:53 01:53 01:51 WBC RBC Hgb Hct MCV MCH MCHC RDW Plt Count MPV Neut % (Auto) Lymph % (Auto) [place] % (Auto) Eos % (Auto) Baso % (Auto) Lymph # (Auto) [place] # (Auto) Eos # (Auto) Baso # (Auto) Absolute Neutrophils VBG Lactic Acid 2.0 Sodium Potassium Chloride Carbon Dioxide Anion Gap BUN Creatinine GFR Calculation Glucose Calcium Total Bilirubin AST ALT Alkaline Phosphatase Total Creatine Kinase Total Protein Albumin Globulin Albumin/Globulin Ratio Urine Color Urine Appearance Urine pH Ur Specific [place] Urine Protein Urine Glucose (UA) Urine Ketones Urine Occult Blood Urine Nitrate Urine Bilirubin Urine Urobilinogen Ur Leukocyte Esterase Urine RBC Urine WBC Ur Squamous Epith Cells Urine Bacteria Urine Mucus Ur Culture Indicated? Salicylates Urine Opiates Screen None detected Ur Opiates Confirm TNP Ur Oxycodone Screen None detected Urine Methadone Screen None detected Ur Methadone Confirm TNP Acetaminophen < 5.0 Ur Barbiturates Screen None detected Ur Barbiturate Confirm TNP Ur Phencyclidine Scrn None detected Urine PCP Confirm TNP Ur Amphetamines Screen None detected U Amphetamines Confirm TNP U Benzodiazepines Scrn Suspect positive A U Benzodiazepine Confm Pending Urine Cocaine Screen None detected Urine Cocaine Confirm TNP U Cannabinoids Confirm TNP U Marijuana (THC) Screen None detected Ethyl Alcohol 06/29/21 06/29/21 01:51 01:50 WBC 10.6 RBC 4.64 Hgb 14.8 Hct 43.1 MCV 92.9 MCH 31.9 MCHC 34.3 RDW 11.6 Plt Count 272 MPV 12.0 H Neut % (Auto) 77.1 Lymph % (Auto) 13.1 L [place] % (Auto) 9.5 Eos % (Auto) 0.1 Baso % (Auto) 0.2 Lymph # (Auto) 1.39 L [place] # (Auto) 1.01 H Eos # (Auto) 0.01 Baso # (Auto) 0.02 Absolute Neutrophils 8.20 H VBG Lactic Acid Sodium 135 Potassium 3.5 Chloride 95 L Carbon Dioxide 22 Anion Gap 18.0 H BUN 22 Creatinine 0.7 GFR Calculation 88 Glucose 110 H Calcium 9.9 Total Bilirubin 0.8 AST 52 H ALT 27 Alkaline Phosphatase 97 Total Creatine Kinase 575 H Total Protein 7.4 Albumin 4.8 Globulin 2.6 Albumin/Globulin Ratio 1.8 Urine Color Urine Appearance Urine pH Ur Specific [place] Urine Protein Urine Glucose (UA) Urine Ketones Urine Occult Blood Urine Nitrate Urine Bilirubin Urine Urobilinogen Ur Leukocyte Esterase Urine RBC Urine WBC Ur Squamous Epith Cells Urine Bacteria Urine Mucus Ur Culture Indicated? Salicylates Urine Opiates Screen Ur Opiates Confirm Ur Oxycodone Screen Urine Methadone Screen Ur Methadone Confirm Acetaminophen Ur Barbiturates Screen Ur Barbiturate Confirm Ur Phencyclidine Scrn Urine PCP Confirm Ur Amphetamines Screen U Amphetamines Confirm U Benzodiazepines Scrn U Benzodiazepine Confm Urine Cocaine Screen Urine Cocaine Confirm U Cannabinoids Confirm U Marijuana (THC) Screen Ethyl Alcohol A/P Narrative A/P Narrative: A: *UTI: *Encephalopathy: 2/2 above + underlying acute psychiatric illness *Anxiety/depression/history of manic episodes and bizarre behaviour: *HTN Urgency: home meds ARB/HCTZ/BB/clonidine *Asthma: *chronic LBP: Follows with pain clinic *Sjogrens/sicca/feli positive: follows with Dr. Alvarado *Hypothyroidism: TSH P: -Rocephin pending UC -cont psych meds -cont home BP meds and prn IV -tsh - -referral to psych outpt -pt/ot -ppx: lovenox Time Spent With Patient Time: Total time spent is greater than 50% in coordination of care (as documented) at patient's floor/unit and/or counseling patient:
[2021-06-29] MEDS ORDERED: ALPRAZolam 0.25 MG TABLET PO PRN (11:09)
[2021-06-29] MEDS ORDERED: POTASSIUM CHLORIDE 40 MEQ in DEXTROSE 5% IN WATER 500 ML IV PRN (11:10)
[2021-06-29] MEDS ORDERED: IPRATROPIUM/ALBUTEROL 3 ML AMPUL.NEB NEB PRN (11:10)
[2021-06-29] MEDS ORDERED: POTASSIUM CHLORIDE 20 MEQ TABLET PO PRN ×2 (11:10)
[2021-06-29] MEDS ORDERED: MAGNESIUM SULFATE 2 GM/50 ML BAG IV PRN (11:10)
[2021-06-29] MEDS ORDERED: POLYETHYLENE GLYCOL 3350 17 GM PACKET PO PRN (11:10)
[2021-06-29] MEDS ORDERED: SENNOSIDES 1 TABLET PO PRN (11:10)
[2021-06-29] MEDS ORDERED: cefTRIAXone 1 GM in DEXTROSE 5% IN WATER 50 ML IV SCH (11:15)
[2021-06-29] MEDS ORDERED: SUMAtriptan SUCCINATE 50 MG TABLET PO PRN (11:26)
[2021-06-29] MEDS ORDERED: DICLOFENAC EPOLAMINE 1.3% TOPICAL PRN (11:32)
[2021-06-29 11:41] LABS: Thyroid Stimulating Hormone 1.98 uIU/mL (0.27-5.01)
[2021-06-29] MEDS: BACLOFEN 10 MG TABLET PO SCH ×2 (11:47→17:25)
[2021-06-29] MEDS: ACYCLOVIR 400 MG TABLET PO SCH ×3 (12:31→20:22)
[2021-06-29] MEDS: 0.9 % SODIUM CHLORIDE 10 ML SYRINGE IV SCH ×2 (13:51→20:26)
[2021-06-29] MEDS: BUPRENORPHINE HCL 8 MG TAB.SUBL SL SCH ×4 (14:09→20:26)
[2021-06-29] MEDS ORDERED: HALOPERIDOL LACTATE 5 MG/ML VIAL IV ONE (15:39)
[2021-06-29] MEDS ORDERED: LORazepam 2 MG/ML VIAL IV PRN ×2 (15:54→15:59)
[2021-06-29] MEDS ORDERED: diphenhydrAMINE 50 MG/ML VIAL IV ONE (15:57)
--- NOTE | 2021-06-29 19:56 | Behavioral Health Consult ---
HPI History of Present Illness Patient information: Note initiated : 06/29/21 at 7:54 pm Service Date, if different from initiated Date: [] Patient: Miranda Soriano 71 y/o F admitted on 06/29/21 for Altered Mental Status. Chief Complaint: [] Chief complaint: AMS History of present illness: As per EMR 71-year-old female history of Sjogren's syndrome, hypertension, anxiety, depression, manic episode, hypothyroid, presenting to the ED for altered mental status/bizarre behavior this seems to have been slowly building o prakash some time but acutely worsened since at least 3 days ago. PFSH PFSH All Active Problems (Updated 06/29/21 @ 07:55 by Nickolas Conklin DO) Acute UTI (Acute) Altered mental status (Acute) Bizarre behavior (Acute) Arthritis of ankle or foot, degenerative (Acute) Facial contusion (Chronic) Interstitial cystitis (Chronic) Increased frequency of urination (Chronic) Dysuria (Chronic) Hematuria (Chronic) Migraine (Chronic) Chronic sinusitis (Chronic) Chronic low back pain (Chronic) Hypothyroid (Chronic) Bilateral carpal tunnel syndrome (Chronic) Squamous cell carcinoma of skin (Chronic) DVT (deep venous thrombosis) (Chronic) Insomnia (Chronic) Anxiety (Chronic) Allergic rhinitis (Chronic) Hyperlipidemia (Chronic) Blepharoconjunctivitis (Chronic) Dermatochalasis of eyelid (Chronic) Age-related nuclear cataract of both eyes (Chronic) Pain with urination (Chronic) Back pain (Chronic) Muscle cramps (Chronic) Muscle stiffness (Chronic) Anxiety disorder due to medical condition (Chronic) Other fpc (current) drug therapy (Chronic) Other specified dorsopathies, thoracic region (Chronic) Hypertension, essential, benign (Chronic) 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) Arthritis of right hip (Chronic) Dupuytren's disease (Chronic) Acute rhinitis (Chronic) Acute exacerbation of chronic bronchitis (Chronic) Post-menopausal (Chronic) Asthma (Chronic) Recurrent maxillary sinusitis (Chronic) Bee sting allergy (Chronic) Malignant melanoma of back (Chronic) Tinea corporis (Chronic) Unspecified disorder of muscle, ligament, and fascia (Chronic) Aphthous stomatitis (Chronic) Anemia (Chronic) Arthralgia (Chronic) Trapezius muscle spasm (Chronic) DDD (degenerative disc disease), cervical (Chronic ~05/2003) Gastroparesis (Chronic) Hypertension (Chronic) 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 and external auditory canal (Chronic) Manic episode (Chronic) Acute exacerbation of chronic bronchitis (Chronic) Initial Medicare annual wellness visit (Chronic) Left foot drop (Chronic) Lumbosacral radiculopathy due to degenerative joint disease of spine (Chronic) Acute URI (Chronic) Radiculopathy, lumbar region (Chronic) Breakdown (mechanical) of other implanted electronic stimulator of nervous system, initial encounter (Chronic) Osteoarthritis of right shoulder (Chronic) Muscle pain, myofascial (Chronic) Cervicalgia (Chronic) Shoulder joint pain (Chronic) Encounter for long-term (current) use of other medications (Chronic) Trochanteric bursitis (Chronic) Anxiety disorder (Chronic) Depression (Chronic) GERD (gastroesophageal reflux disease) (Chronic) Cervical radiculopathy (Chronic) Radiculopathy, lumbar region (Acute) Dermatitis (Acute) Elevated antinuclear antibody (ROSALIND) level (Chronic) Eczema (Chronic) ROSALIND positive (Acute) Abnormal immunological finding in serum (Acute) Sjogrens syndrome (Acute) Medical History Abnormal immunological finding in serum Acute exacerbation of chronic bronchitis Acute rhinitis Age-related nuclear cataract of both eyes Allergic rhinitis ROSALIND positive Anemia Anxiety Anxiety disorder Anxiety disorder due to medical condition Aphthous stomatitis Arthralgia Arthritis of right hip Asthma Back pain Bee sting allergy Bilateral carpal tunnel syndrome Blepharoconjunctivitis Breakdown (mechanical) of other implanted electronic stimulator of nervous system, initial encounter Cervical radiculopathy Cervicalgia Chronic low back pain Chronic sinusitis DDD (degenerative disc disease), cervical (~05/2003) W/Radiculopathy. C5-6 left nerve root disc Depression Dermatochalasis of eyelid Right Dupuytren's disease "Of Finger" DVT (deep venous thrombosis) Dysuria Eczema Elevated antinuclear antibody (ROSALIND) level Encounter for long-term (current) use of other medications Facial contusion Gastroparesis GERD (gastroesophageal reflux disease) Hematuria Hyperlipidemia Hypertension benign essential Hypertension, essential, benign Hypothyroid Increased frequency of urination Insomnia Interstitial cystitis correction (current) use of opiate analgesic Malignant melanoma of back Manic episode Migraine Muscle cramps Muscle pain, myofascial Muscle stiffness Osteoarthritis of right shoulder Other fpc (current) drug therapy Other specified dorsopathies, thoracic region Pain with urination Post-menopausal Radiculopathy, lumbar region Radiculopathy, lumbar region Recurrent maxillary sinusitis Shoulder joint pain Sjogrens syndrome Squamous cell carcinoma of skin Right Ear 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 and external auditory canal Tinea corporis Trapezius muscle spasm Trochanteric bursitis Unspecified disorder of muscle, ligament, and fascia Surgical History History of surgery BRIA #1 w/cath, w/sed 04/14/20 TF NATIVIDAD #1 Lt L4-5 w/o sed 03/18/2007/31 Revision/ Removal of SCS Generator w/ sed 07/20/201801/29 BRIA #1 w/cath, w/o sed 01/15/1801/29 Trigger Point Injection w/o sed 01/15/1801/29 Shoulder Joint Injection, rigth w/o sed 01/15/18 S/P breast biopsy S/P hysterectomy S/P right knee surgery "Meniscus Tear Repair" S/P spinal surgery Spinal Stimulator Status post surgery "Skin Excision" Family History Sister Breast cancer Social History marital status: education level: college occupational status: retired alcohol intake frequency: a few times a week substance use type: does not use seatbelt use: always MEDS/ALLERGIES Home Medications and Allergies Home Medications Medication Instructions Recorded Confirmed Type albuterol sulfate 90 mcg/actuation 2 puff INHALATION QID PRN 11/21/19 06/29/21 History aerosol inhaler (ProAir HFA) clindamycin phosphate 1 % topical 1 applic TOPICAL BID 11/21/19 06/29/21 History gel diclofenac sodium 1 % topical gel 2 g TOPICAL DIRECTED PRN g 11/21/1906/29 History (Voltaren) fluticasone propionate 50 1 spray INTRANASAL DAILYP PRN 11/21/19 06/29/21 History mcg/actuation nasal spray,suspension ipratropium 0.5 mg-albuterol 3 mg 3 ml INHALATION BID PRN ml 11/21/19 06/29/21 History (2.5 mg base)/3 mL nebulization soln phenazopyridine 200 mg tablet 200 mg PO TID 11/21/19 06/29/21 History levothyroxine 100 mcg tablet 100 mcg PO DAILY #30 tab 09/07/20 06/29/21 Rx estradiol 0.1 mg/24 hr semiweekly 1 patch TRANSDERMA 2XW #8 each 09/10/20 06/29/21 Rx transdermal patch pentosan polysulfate sodium 100 mg 100 mg PO QID #120 cap 11/05/20 06/29/21 Rx capsule (Elmiron) losartan 100 1 tab PO QDAY #90 tab 12/09/20 06/29/21 Rx mg-hydrochlorothiazide 12.5 mg tablet halobetasol propionate 0.05 % 1 applic TOPICAL BID 12/15/20 06/29/21 History topical ointment multivitamin [Daily Multi-Vitamin] 3 tab PO DAILY 02/22/21 06/29/21 History propranolol 120 mg capsule,24 120 mg PO QHS #90 cap 03/09/21 06/29/21 Rx hr,extended release zolpidem 10 mg tablet (Ambien) See Rx Instructions PO QHS #45 tab 04/07/21 06/29/21 Rx cephalexin 500 mg capsule 500 mg PO TID #30 cap 05/07/21 06/29/21 Rx triamcinolone acetonide 0.1 % See Rx Instructions .ROUTE 05/17/21 06/29/21 Rx dental paste .COMPLEX #5 g acyclovir 800 mg tablet See Rx Instructions .ROUTE 06/01/21 06/29/21 Rx .COMPLEX #120 tab buprenorphine HCl 8 mg sublingual 8 mg SUBLINGUAL QID #120 tab 06/08/21 06/29/21 Rx tablet alprazolam 0.25 mg tablet 0.25 mg PO Q6HP PRN 06/29/21 06/29/21 History baclofen 20 mg tablet 10 mg PO Q6H 06/29/21 06/29/21 History clonidine HCl 0.1 mg tablet 0.1 mg PO BID 06/29/21 06/29/21 History diclofenac epolamine 1.3 % 1 patch TOPICAL Q12H PRN 06/29/21 06/29/21 History transdermal 12 hour patch (Flector) imipramine HCl 50 mg tablet 50 mg PO BID 06/29/21 06/29/21 History ketorolac 0.5 % eye drops 1 drp OPHTHALMIC (EYE) DAILYP PRN 06/29/21 06/29/21 History montelukast 10 mg tablet 10 mg PO DAILY 06/29/21 06/29/21 History sumatriptan succinate 100 mg 100 mg PO PRN PRN 06/29/21 06/29/21 History tablet (Imitrex) Allergies Allergy/AdvReac Type Severity Reaction Status Date / Time No Known Drug Allergies Allergy Verified 06/29/21 09:36 Physical Examination Vital Signs Vital signs: Temp Pulse Resp BP Pulse Ox 98.7 F 80 20 139/66 99 06/29/21 12:09 06/29/21 15:58 06/29/21 12:08 06/29/21 16:22 06/29/21 15:58 Results Laboratory Findings CBC and BMP: 06/29/21 01:51 06/29/21 01:50 Abnormal lab findings: Abnormal Labs 06/29/21 06/29/21 06/29/21 01:50 01:51 01:53 MPV 12.0 H Lymph % (Auto) 13.1 L Lymph # (Auto) 1.39 L [place] # (Auto) 1.01 H Absolute Neutrophils 8.20 H Chloride 95 L Anion Gap 18.0 H Glucose 110 H AST 52 H Total Creatine Kinase 575 H Urine Appearance Urine Protein Urine Ketones Urine Nitrate Ur Leukocyte Esterase Urine WBC Urine Bacteria Urine Mucus U Benzodiazepines Scrn Suspect positive A 06/29/21 02:09 MPV Lymph % (Auto) Lymph # (Auto) [place] # (Auto) Absolute Neutrophils Chloride Anion Gap Glucose AST Total Creatine Kinase Urine Appearance Hazy A Urine Protein 30 A Urine Ketones 20 A Urine Nitrate Pos A Ur Leukocyte Esterase 75 A Urine WBC 37 H Urine Bacteria Many A Urine Mucus Few A U Benzodiazepines Scrn Microbiology: Microbiology 06/29/21 07:14 Nasopharynx SARS-CoV-2 by PCR (KI) - Final Alcohol Toxicology: ABG 06/29/21 01:53 Ethyl Alcohol < 0.010 A/P Narrative A/P Narrative: Name: Miranda Soriano Date: 06/29/2021 Time: 22:30EST : 1950 Time spent: 20-30min This evaluation was conducted via Telepsychiatry with the assistance of onsite staff Chief Complaint: Bizarre behavior History of Present Illness: As per EMR 71-year-old female history of Sjogren's syndrome, hypertension, anxiety, depression, manic episode, hypothyroid, presenting to the ED for altered mental status/bizarre behavior this seems to have been slowly building over some time but acutely worsened since at least 3 days ago. On attempt to interview patient nonverbal, with blank stare, started shaking B/L upper extremities, not responding to verbal stimuli. Collateral: Reported by staff stated that patient has been yelling and barking for the past few hours, confused, unable to be verbally redirected. Psychiatric History/Treatment History: Unable to obtain at this time Current Medications: As per med rec: Ambien, Suboxone, Xanax, History of suicide: Unable to obtain Substance Abuse History: UDS +Benzodiazepines Medical History: As per chart Sjogrens, HTN, hypothyroid Allergies: unable to obtain Family Psych History: unable to obtain Social History: lives with roommate Firearm: Unable to obtain Trauma: unable to elicit Employment: Unable to obtain Education: not elicited Stressors: comorbid medical Suicide Assessment: PSS-3: 1) Over the past 2 weeks have you felt down, depressed or hopeless? NO 2) Over the past 2 weeks have you had thoughts of killing yourself? NO 3) Have you ever in your life attempted to kill yourself? NO If yes, then when? Within the past 24h? (Y/N), past month? (Y/N), between 1-6 months (Y/N) PSS-3 Secondary Screen If #2 is yes or #3 is yes within the past 6 months, then complete secondary screen: NA 1) Positive on PSS-3 questions 2 & 3 active SI with a past attempt? 2) Have you been thinking about how you might kill yourself? 3) Have you had some intention of acting on your thoughts? 4) Lifetime psychiatric hospitalization? 5) Has drinking or substance abuse ever been a problem for you? 6) Current irritability, agitation, or aggression? PSS-3 Secondary Screen Scoring: (Mild/Moderate/Severe) Mild (0-2) No current attempt and no plan/intent Moderate (3-4) No current attempt, Plan OR intent but not both Severe (5-6) Current Attempt with Plan AND intent Mental Status Exam: Appearance and attire: disheveled, restless Attitude and behavior: uncooperative Orientation: 0 Eye Contact: poor Speech: nonverbal Mood: nonverbal Affect: constricted Association and Thought processes: restless, psychomotor agitated Thought content: unable to elicit Perception: unable to elicit Sensorium and memory: impaired Intellectual functioning: - Insight and judgment: poor Impression/Risk Assessment: 71yo female with unclear PPhx reportedly depression, anxiety, bipolar disorder, presents currently with altered mental status suspected secondary to polypharmacy or ingestion, appears delirious, with behavioral disturbances, unable to cooperate with interview at this time. Diagnosis: Delirium Unspecified psychotic disorder Treatment Recommendations: At this time patient is considered to be unable to care for self, NOT In need of inpatient psychiatric hospitalization Pharmacological: Seroquel 25mg PO Q4h PRN, agitation Haldol 5mg IM/IV Q6h PRN, severe agitation Benadryl 25mg IM/IV Q6h PRN, prevention of EPS Ativan 1mg PO/IV PRN Q4h PRN CIWA 8-15 Therapy: milieu/supportive Level of Care: Continue current level of care Portions of this note were dictated using [employer] voice recognition software. Although it was reviewed for accuracy, some inherent voice recognition errors may have occurred and be present in this document. Psychiatrist Physicians Name: Enoc Higgins M.D. Time Spent With Patient Time: Total time spent is greater than 50% in coordination of care (as documented) at patient's floor/unit and/or counseling patient: Total time spent with greater than 50% in coordination of care (as documented) at patient's floor/unit and/or counseling patient:: 25 - 35 minutes
[2021-06-29] MEDS: PROPRANOLOL 60 MG CAP.XL.24H PO SCH (20:22)
[2021-06-29] MEDS: QUEtiapine 25 MG TABLET PO SCH (20:22)
[2021-06-29] MEDS: cloNIDine HCL 0.1 MG TABLET PO SCH (20:22)
[2021-06-29] MEDS: IMIPRAMINE 25 MG TABLET PO SCH (20:22)
[2021-06-29] MEDS: DOCUSATE SODIUM 100 MG CAPSULE PO SCH (20:25)
[2021-06-29] MEDS: CLINDAMYCIN PHOSPHATE 1% TOPICAL SCH (20:26)
[2021-06-29] MEDS ORDERED: ZOLPIDEM 5 MG TABLET PO SCH (21:00)
[2021-06-29] MEDS ORDERED: QUEtiapine 25 MG TABLET PO PRN (23:34)
[2021-06-29] MEDS ORDERED: HALOPERIDOL LACTATE 5 MG/ML VIAL IV PRN ×2 (23:37→23:42)
[2021-06-29] MEDS ORDERED: diphenhydrAMINE 50 MG/ML VIAL IV PRN (23:44)
[2021-06-29] MEDS ORDERED: HALOPERIDOL LACTATE 5 MG/ML VIAL ONE (23:53)
[2021-06-29] MEDS ORDERED: diphenhydrAMINE 50 MG/ML VIAL ONE (23:55)
[2021-06-30] MEDS: BACLOFEN 10 MG TABLET PO SCH ×5 (00:09→23:25)
[2021-06-30] MEDS: 0.9 % SODIUM CHLORIDE 10 ML SYRINGE IV SCH ×3 (05:33→20:15)
[2021-06-30 07:29] LABS: Hematocrit 33.9 % (34.1-44.9); Hemoglobin 11.9 g/dL (11.2-15.7); Mean Corpuscular HGB Conc 35.1 g/dL (31.0-36.0); Mean Platelet Volume 11.7 fL (7.4-10.4); Platelet Count 189 K/mcL (140-440); RBC 3.57 M/mcL (3.59-5.38); Red Cell Distribution Width 11.9 % (11.5-14.5); WBC 6.8 K/mcL (4.5-11.0)
[2021-06-30 07:35] LABS: ALT/SGPT 20 U/L (<40); AST/SGOT 32 U/L (<32); Albumin 3.5 gm/dL (3.2-5.2); Albumin/Globulin Ratio 1.8 (1.0-2.3); Alkaline Phosphatase 66 U/L (39-117); Bilirubin,Direct 0.2 mg/dL (<0.3); Bilirubin,Total 0.6 mg/dL (0.1-1.0); Blood Urea Nitrogen 12 mg/dL (8-23); Calcium 8.6 mg/dL (8.6-10.4); Carbon Dioxide 24 mmol/L (22-30); Chloride 101 mmol/L (96-108); Globulin 1.9 gm/dL (2.2-3.7); Glomerular Filtration Rate 92; Glucose 110 mg/dL (70-105); Lactate Dehydrogenase 248 U/L (135-225); Phosphorous 2.8 mg/dL (2.5-4.5); Triglycerides 63 mg/dL (<150); Uric Acid 2.5 mg/dL (2.5-8.0)
--- NOTE | 2021-06-30 07:54 | Internal Med Progress Note ---
SUBJECTIVE Subjective Patient information: Note initiated : 06/30/21 at 7:50 am Service Date, if different from initiated Date: [] Patient: Miranda Soriano 71 y/o F admitted on 06/29/21 for Altered Mental Status. Chief Complaint: [] Interval history: History of present illness: Ms. Soriano is a 71 year old F EMS called because patient altered. Sustained a fall couple days ago and has not been right since per neighbors. Limited verbal response patient not head screamed yes occasionally in triage but not giving much history. Has a history of anxiety depression and a manic episode and hypothyroidism. Per history she has had altered mental status and bizarre behavior worsening over the past few days. History obtained from the neighbor Marthaander [employer] student who lives with the patient. Emergency the patient had some degree of unknown mental illness for years where she did have episodes of acting manic or bizarre not sure if there is ever been any official diagnosis. The student reported that he said some bizarre episodes from time to time. Used to drink alcohol in the past but nothing in the past year per the neighbor. She was bit hypertensive which she came in and also found to have a UTI. Case was discussed with neurologist who did not feel it was hypertensive emergency or other central neurological etiology that needed further work-up or transfer -felt it was likely related to underlying psych in the setting of UTI. CT brain was unremarkable. She was afebrile and besides elevated blood pressure she had mild tachycardia but otherwise no other abnormalities on vitals. CBC and lactate unremarkable. Chemistry unimpressive other than a mild elevation in creatinine kinase likely related to her fall. Urine consistent with urinary tract infection. UDS unremarkable including alcohol. 06/30 Patient evaluated by psychiatry last night and as needed medications ordered. Patient much more clear today. Review of Systems: denies headache/fever/chills/nausea/vomiting/chest or abdominal pain/cough/dyspnea/diarrhea. Otherwise see above. Constitutional Vitals: Vital Signs Temp Pulse Resp BP Pulse Ox 98.7 F 80 20 139/66 99 06/29/21 12:09 06/29/21 15:58 06/29/21 12:08 06/29/21 16:22 06/29/21 15:58 Period Temp Pulse Resp BP Sys/[place] Pulse Ox Last 24 Hr 98.4 F-99.0 F 80-112 20 138-220/66-186 98-99 Intake and Output 06/29/21 06/30/21 06/30/21 21:59 05:59 13:59 Intake Total 876 Output Total 1 Balance 875 Intake & Output: Intake & Output 06/29/21 06/30/21 06/30/21 21:59 05:59 13:59 Intake Total 876 Output Total 1 Balance 875 Intake: IV 756 Sodium Chloride 0.9% 1,000 ml @ 756 75 mls/hr IV .[id number] [facility] Rx#: [id number] Oral 120 Output: # of times incontinent of urine 1 Other: Meal applesauce Percent of Meal Consumed 100% Exam: General: Alert, Awake, No acute Distress Eyes/N/T: EOMI, Head/Neck: neck supple, CV: Tacky but regular,, No murmurs, Pulm: Clear b/l, no wheezing/rhonchi/rales Abd: soft, nontender, +BS x4 Ext: no clubbing/cyanosis/edema Neuro: Alert, moves all extremities continuously. No focal deficits Psych: Patient much more clear today and communicating appropriately and clearly She is nonverbal. skin: warm/dry OBJ DATA Labs CBC & Chem 7: 06/30/21 05:21 06/30/21 05:21 Labs: Abnormal Lab Results 06/30/21 06/30/21 06/29/21 05:21 05:21 02:09 RBC 3.57 L Hct 33.9 L MPV 11.7 H Lymph % (Auto) Lymph # (Auto) [place] # (Auto) Absolute Neutrophils Potassium 3.2 L Chloride Anion Gap Glucose 110 H GGT 42 H AST 32 H Lactate Dehydrogenase 248 H Total Creatine Kinase Total Protein 5.4 L Globulin 1.9 L Urine Appearance Hazy A Urine Protein 30 A Urine Ketones 20 A Urine Nitrate Pos A Ur Leukocyte Esterase 75 A Urine WBC 37 H Urine Bacteria Many A Urine Mucus Few A U Benzodiazepines Scrn 06/29/21 06/29/21 06/29/21 01:53 01:51 01:50 RBC Hct MPV 12.0 H Lymph % (Auto) 13.1 L Lymph # (Auto) 1.39 L [place] # (Auto) 1.01 H Absolute Neutrophils 8.20 H Potassium Chloride 95 L Anion Gap 18.0 H Glucose 110 H GGT AST 52 H Lactate Dehydrogenase Total Creatine Kinase 575 H Total Protein Globulin Urine Appearance Urine Protein Urine Ketones Urine Nitrate Ur Leukocyte Esterase Urine WBC Urine Bacteria Urine Mucus U Benzodiazepines Scrn Suspect positive A Meds: Medications Acyclovir (Acyclovir 400 Mg Tablet) 800 mg PO QID [facility] Last Admin: 06/29/21 20:22 Dose: 800 mg Documented by: Albuterol/Ipratropium (Ipratropium/Albuterol 3 Ml Ampul.Neb) 3 ml NEB Q4HP PRN PRN Reason: Shortness Of Breath Baclofen (Baclofen 10 Mg Tablet) 10 mg PO Q6H [facility] Last Admin: 06/30/21 05:33 Dose: 10 mg Documented by: Ceftriaxone Sodium (Ceftriaxone 1 Gm Vial) 1 gm IV DAILY [facility] Clonidine HCl (Clonidine Hcl 0.1 Mg Tablet) 0.1 mg PO BID [facility] Last Admin: 06/29/21 20:22 Dose: 0.1 mg Documented by: Diphenhydramine HCl (Diphenhydramine 50 Mg/Ml Vial) 25 mg IV Q6HP PRN PRN Reason: severe agitation Last Admin: 06/30/21 00:09 Dose: 25 mg Documented by: Docusate Sodium (Docusate Sodium 100 Mg Capsule) 100 mg PO BID [facility] Last Admin: 06/29/21 20:25 Dose: Not Given Documented by: Enoxaparin Sodium (Enoxaparin 40 Mg/0.4 Ml Syringe) 40 mg SQ DAILY [facility] Haloperidol Lactate (Haloperidol Lactate 5 Mg/Ml Vial) 5 mg IV Q6HP PRN PRN Reason: for severe agitation Last Admin: 06/30/21 00:10 Dose: 5 mg Documented by: Hydrochlorothiazide (Hydrochlorothiazide 12.5 Mg Capsule) 12.5 mg PO DAILY [facility] Sodium Chloride (Sodium Chloride 0.9%) 1,000 mls @ 75 mls/hr IV .[id number] [facility] Last Admin: 06/29/21 19:05 Dose: 75 mls/hr Documented by: Potassium Chloride 40 meq/ (Dextrose) 520 mls @ 130 mls/hr IV UD PRN PRN Reason: Potassium < 3 Magnesium Sulfate (Magnesium Sulfate) 2 gm in 50 mls @ 50 mls/hr IV UD PRN PRN Reason: Magnesium </= 1.6 Imipramine HCl (Imipramine 25 Mg Tablet) 50 mg PO BID [facility] Last Admin: 06/29/21 20:22 Dose: 50 mg Documented by: Ketorolac Tromethamine (Ketorolac Tromethamine 5 Ml Drops) 1 ml OP DAILYP PRN PRN Reason: COMFORT Labetalol HCl (Labetalol 5 Mg/Ml Ml) 0 mg IV Q2HP PRN PRN Reason: Hypertension Levothyroxine Sodium (Levothyroxine 100 Mcg Tablet) 100 mcg PO ACB [facility] Losartan Potassium (Losartan 50 Mg Tablet) 100 mg PO DAILY [facility] Montelukast Sodium (Montelukast 10 Mg Tablet) 10 mg PO DAILY [facility] Buprenorphine Hcl 8 (Mg Tab.Subl) 1 dose SL QID [facility] Last Admin: 06/29/21 20:26 Dose: Not Given Documented by: Ondansetron HCl (Ondansetron 4 Mg/2 Ml Vial) 4 mg IV Q4HP PRN PRN Reason: Nausea And Vomiting Clindamycin Phosphate 1% Topical Gel 1 dose TOPICAL BID [facility] Last Admin: 06/29/21 20:26 Dose: Not Given Documented by: Diclofenac Epolamine [Flector] 1.3 % Patch 12 Hour 1 dose TOPICAL BIDP PRN PRN Reason: Pain Polyethylene Glycol (Polyethylene Glycol 3350 17 Gm Packet) 17 gm PO DAILYP PRN PRN Reason: Constipation Potassium Chloride (Potassium Chloride 20 Meq Tablet) 40 meq PO UD PRN PRN Reason: Potssium is 3-3.5 Potassium Chloride (Potassium Chloride 20 Meq Tablet) 40 meq PO UD PRN PRN Reason: Potassium < 3 Propranolol HCl (Propranolol 60 Mg Cap.Xl.24h) 120 mg PO [facility] Last Admin: 06/29/21 20:22 Dose: 120 mg Documented by: Quetiapine Fumarate (Quetiapine 25 Mg Tablet) 25 mg PO [facility] Last Admin: 06/29/21 20:22 Dose: 25 mg Documented by: Quetiapine Fumarate (Quetiapine 25 Mg Tablet) 25 mg PO Q4HP PRN PRN Reason: for agitation Last Admin: 06/30/21 04:26 Dose: 25 mg Documented by: Senna (Sennosides 1 Tablet) 2 tab PO DAILYP PRN PRN Reason: Constipation Sodium Chloride (0.9 % Sodium Chloride 10 Ml Syringe) 10 ml IV Q8 [facility] Last Admin: 06/30/21 05:33 Dose: Not Given Documented by: Sumatriptan Succinate (Sumatriptan Succinate 50 Mg Tablet) 100 mg PO DAILYP PRN PRN Reason: Migraine Headache A/P Narrative A/P Narrative: A: *Acute Psychosis: improved today *Anxiety/depression/history of manic episodes and bizarre behavior: *UTI: *HTN Urgency: home meds ARB/HCTZ/BB/clonidine -improved *Asthma: *chronic LBP: Follows with pain clinic *Sjogrens/sicca/feli positive: follows with Dr. Alvarado *Hypothyroidism: TSHwnl P: -psych consulted -Rocephin pending UC -cont home BP meds and prn IV -pt/ot -ppx: lovenox Time Spent With Patient Time: Total time spent is greater than 50% in coordination of care (as documented) at patient's floor/unit and/or counseling patient:
[2021-06-30] MEDS ORDERED: KETOROLAC TROMETHAMINE 1 GTT BOTTLE OP PRN (09:00)
[2021-06-30] MEDS ORDERED: HYDROCHLOROTHIAZIDE 12.5 MG CAPSULE PO SCH (09:00)
[2021-06-30] MEDS ORDERED: LOSARTAN 50 MG TABLET PO SCH (09:00)
[2021-06-30] MEDS ORDERED: MONTELUKAST 10 MG TABLET PO SCH ×2 (09:00→21:00)
[2021-06-30] MEDS: ENOXAPARIN 40 MG/0.4 ML SYRINGE SQ SCH (09:06)
[2021-06-30] MEDS: ACYCLOVIR 400 MG TABLET PO SCH ×4 (09:06→20:14)
[2021-06-30] MEDS: IMIPRAMINE 25 MG TABLET PO SCH ×2 (09:06→20:14)
[2021-06-30] MEDS: LEVOTHYROXINE 100 MCG TABLET PO SCH (09:06)
[2021-06-30] MEDS: cefTRIAXone 1 GM VIAL IV SCH (09:06)
[2021-06-30] MEDS: BUPRENORPHINE HCL 8 MG TAB.SUBL SL SCH ×4 (09:08→20:16)
[2021-06-30] MEDS: 0.9 % SODIUM CHLORIDE 1,000 ML IV SCH (09:24)
[2021-06-30 09:41] LABS: Band Neutrophils % 1 % (0-10); Eosinophils % (Manual) 4 % (0-7); Lymphocytes % 27 % (15-49); Monocytes % (Manual) 8 % (1-12); Platelet Estimate NORMAL (Normal); RBC Morphology NORMAL (Normal); Reactive Lymphocytes 2 % (0-2); Segmented Neutrophils % 58 % (38-78)
[2021-06-30] MEDS: DOCUSATE SODIUM 100 MG CAPSULE PO SCH ×2 (09:43→20:14)
[2021-06-30] MEDS: CLINDAMYCIN PHOSPHATE 1% TOPICAL SCH ×2 (09:43→20:15)
[2021-06-30] MEDS: cloNIDine HCL 0.1 MG TABLET PO SCH ×2 (10:07→20:15)
[2021-06-30] MEDS ORDERED: ACETAMINOPHEN 325 MG TABLET PO PRN (15:09)
[2021-06-30] MEDS: LACTOPEROXI/GLUC OXID/POT THIO 1 EACH GEL..EA. TOPICAL PRN ×2 (16:43→20:15)
[2021-06-30] MEDS: FLUTICASONE PROPIONATE SPRAY.NAS NS SCH ×2 (17:22→18:03)
[2021-06-30] MEDS ORDERED: diphenhydrAMINE 25 MG CAPSULE PO PRN (20:04)
[2021-06-30] MEDS: QUEtiapine 25 MG TABLET PO SCH (20:14)
[2021-06-30] MEDS: PROPRANOLOL 60 MG CAP.XL.24H PO SCH (20:14)
[2021-07-01] MEDS: 0.9 % SODIUM CHLORIDE 1,000 ML IV SCH ×2 (00:30→00:31)
[2021-07-01] MEDS: 0.9 % SODIUM CHLORIDE 10 ML SYRINGE IV SCH ×2 (05:52→12:34)
[2021-07-01] MEDS: BACLOFEN 10 MG TABLET PO SCH ×2 (05:52→11:50)
--- NOTE | 2021-07-01 07:33 | Internal Med Progress Note ---
SUBJECTIVE Subjective Patient information: Note initiated : 07/01/21 at 7:31 am Service Date, if different from initiated Date: [] Patient: Miranda Soriano 71 y/o F admitted on 06/30/21 for Altered Mental Status. Chief Complaint: [] Interval history: History of present illness: Ms. Soriano is a 71 year old F EMS called because patient altered. Sustained a fall couple days ago and has not been right since per neighbors. Limited verbal response patient not head screamed yes occasionally in triage but not giving much history. Has a history of anxiety depression and a manic episode and hypothyroidism. Per history she has had altered mental status and bizarre behavior worsening over the past few days. History obtained from the neighbor Martha [employer] student who lives with the patient. Emergency the patient had some degree of unknown mental illness for years where she did have episodes of acting manic or bizarre not sure if there is ever been any official diagnosis. The student reported that he said some bizarre episodes from time to time. Used to drink alcohol in the past but nothing in the past year per the neighbor. She was bit hypertensive which she came in and also found to have a UTI. Case was discussed with neurologist who did not feel it was hypertensive emergency or other central neurological etiology that needed further work-up or transfer -felt it was likely related to underlying psych in the setting of UTI. CT brain was unremarkable. She was afebrile and besides elevated blood pressure she had mild tachycardia but otherwise no other abnormalities on vitals. CBC and lactate unremarkable. Chemistry unimpressive other than a mild elevation in creatinine kinase likely related to her fall. Urine consistent with urinary tract infection. UDS unremarkable including alcohol. 06/30 Patient evaluated by psychiatry last night and as needed medications ordered. Patient much more clear today. 07/01 Feeling much better today. Much more clear. No overnight event or new complaints. Review of Systems: denies headache/fever/chills/nausea/vomiting/chest or abdominal pain/cough/dyspnea/diarrhea. Otherwise see above. Constitutional Vitals: Vital Signs Temp Pulse Resp BP Pulse Ox 97.8 F 71 12 148/91 96 07/01/21 03:20 07/01/21 03:20 07/01/21 03:20 07/01/21 03:20 07/01/21 03:20 Period Temp Pulse Resp BP Sys/[place] Pulse Ox Last 24 Hr 97.2 F-98.8 F 60-96 12-18 86-153/60-91 91-100 Intake and Output 06/30/21 07/01/21 07/01/21 21:59 05:59 13:59 Intake Total 1679 120 Output Total 300 Balance 1679 -180 Weight 70.845 kg Intake & Output: Intake & Output 06/30/21 07/01/21 07/01/21 21:59 05:59 13:59 Intake Total 1679 120 Output Total 300 Balance 1679 -180 Weight 70.845 kg Intake: IV 859 0 Sodium Chloride 0.9% 1,000 ml @ 859 0 75 mls/hr IV .[id number] [facility] Rx#: [id number] Oral 820 120 Output: Void Amount 300 Other: Meal Dinner Percent of Meal Consumed 100% Feeding Ability Independent Urine Appearance Clear Clear Urine Color Dark Yellow Bright Yellow Urine Odor Normal Stool Size Small Small Stool Color Brown Stool Consistency Dry and Hard Soft # Voids 1 1 # Bowel Movements 2 1 Exam: General: Alert, Awake, No acute Distress Eyes/N/T: EOMI, Head/Neck: neck supple, CV: Tacky but regular,, No murmurs, Pulm: Clear b/l, no wheezing/rhonchi/rales Abd: soft, nontender, +BS x4 Ext: no clubbing/cyanosis/edema Neuro: Alert, moves all extremities continuously. No focal deficits Psych: Patient much more clear today and communicating appropriately and clearly She is nonverbal. skin: warm/dry OBJ DATA Labs CBC & Chem 7: 06/30/21 05:21 06/30/21 05:21 Labs: Abnormal Lab Results 06/30/21 06/30/21 06/30/21 05:21 05:21 05:21 RBC 3.57 L Hct 33.9 L MPV 11.7 H Lymph % (Auto) Lymph # (Auto) [place] # (Auto) Absolute Neutrophils Potassium 3.2 L Chloride Anion Gap Glucose 110 H GGT 42 H AST 32 H Lactate Dehydrogenase 248 H Total Creatine Kinase 233 H Total Protein 5.4 L Globulin 1.9 L Urine Appearance Urine Protein Urine Ketones Urine Nitrate Ur Leukocyte Esterase Urine WBC Urine Bacteria Urine Mucus U Benzodiazepines Scrn 06/29/21 06/29/21 06/29/21 02:09 01:53 01:51 RBC Hct MPV 12.0 H Lymph % (Auto) 13.1 L Lymph # (Auto) 1.[address] [place] # (Auto) 1.01 H Absolute Neutrophils 8.20 H Potassium Chloride Anion Gap Glucose GGT AST Lactate Dehydrogenase Total Creatine Kinase Total Protein Globulin Urine Appearance Hazy A Urine Protein 30 A Urine Ketones 20 A Urine Nitrate Pos A Ur Leukocyte Esterase 75 A Urine WBC 37 H Urine Bacteria Many A Urine Mucus Few A U Benzodiazepines Scrn Suspect positive A 06/29/21 01:50 RBC Hct MPV Lymph % (Auto) Lymph # (Auto) [facility] # (Auto) Absolute Neutrophils Potassium Chloride 95 L Anion Gap 18.0 H Glucose 110 H GGT AST 52 H Lactate Dehydrogenase Total Creatine Kinase 575 H Total Protein Globulin Urine Appearance Urine Protein Urine Ketones Urine Nitrate Ur Leukocyte Esterase Urine WBC Urine Bacteria Urine Mucus U Benzodiazepines Scrn Meds: Medications Acetaminophen (Acetaminophen 325 Mg Tablet) 650 mg PO Q6HP PRN; Protocol PRN Reason: Per Pain Protocol Last Admin: 06/30/21 16:47 Dose: 650 mg Documented by: Acyclovir (Acyclovir 400 Mg Tablet) 800 mg PO QID [facility] Last Admin: 06/30/21 20:14 Dose: Not Given Documented by: Albuterol/Ipratropium (Ipratropium/Albuterol 3 Ml Ampul.Neb) 3 ml NEB Q4HP PRN PRN Reason: Shortness Of Breath Baclofen (Baclofen 10 Mg Tablet) 10 mg PO Q6H [facility] Last Admin: 07/01/21 05:52 Dose: 10 mg Documented by: Ceftriaxone Sodium (Ceftriaxone 1 Gm Vial) 1 gm IV DAILY [facility] Last Admin: 06/30/21 09:06 Dose: 1 gm Documented by: Clonidine HCl (Clonidine Hcl 0.1 Mg Tablet) 0.1 mg PO BID [facility] Last Admin: 06/30/21 20:15 Dose: Not Given Documented by: Diphenhydramine HCl (Diphenhydramine 50 Mg/Ml Vial) 25 mg IV Q6HP PRN PRN Reason: severe agitation Last Admin: 06/30/21 00:09 Dose: 25 mg Documented by: Diphenhydramine HCl (Diphenhydramine 25 Mg Capsule) 25 mg PO HSP PRN PRN Reason: Insomnia Last Admin: 06/30/21 20:14 Dose: 25 mg Documented by: Docusate Sodium (Docusate Sodium 100 Mg Capsule) 100 mg PO BID [facility] Last Admin: 06/30/21 20:14 Dose: 100 mg Documented by: Enoxaparin Sodium (Enoxaparin 40 Mg/0.4 Ml Syringe) 40 mg SQ DAILY [facility] Last Admin: 06/30/21 09:06 Dose: 40 mg Documented by: Fluticasone Propionate (Fluticasone Propionate [place].Jermain) 2 spray NS DAILY [facility] Last Admin: 06/30/21 18:03 Dose: 2 spray Documented by: Glucose Oxid/Lactoperoxid/Muramidas (Lactoperoxi/Gluc Oxid/Pot Thio 1 Each Gel..Ea.) 1 each TOPICAL PRN PRN PRN Reason: Dry Mouth Last Admin: 06/30/21 20:15 Dose: 1 each Documented by: Haloperidol Lactate (Haloperidol Lactate 5 Mg/Ml Vial) 5 mg IV Q6HP PRN PRN Reason: for severe agitation Last Admin: 06/30/21 00:10 Dose: 5 mg Documented by: Sodium Chloride (Sodium Chloride 0.9%) 1,000 mls @ 75 mls/hr IV .[id number] [facility] Last Admin: 07/01/21 00:31 Dose: 75 mls/hr Documented by: Potassium Chloride 40 meq/ (Dextrose) 520 mls @ 130 mls/hr IV UD PRN PRN Reason: Potassium < 3 Magnesium Sulfate (Magnesium Sulfate) 2 gm in 50 mls @ 50 mls/hr IV UD PRN PRN Reason: Magnesium </= 1.6 Imipramine HCl (Imipramine 25 Mg Tablet) 50 mg PO BID [facility] Last Admin: 06/30/21 20:14 Dose: 50 mg Documented by: Ketorolac Tromethamine (Ketorolac Tromethamine 5 Ml Drops) 1 ml OP DAILYP PRN PRN Reason: COMFORT Labetalol HCl (Labetalol 5 Mg/Ml Ml) 0 mg IV Q2HP PRN PRN Reason: Hypertension Levothyroxine Sodium (Levothyroxine 100 Mcg Tablet) 100 mcg PO ACB [facility] Last Admin: 06/30/21 09:06 Dose: 100 mcg Documented by: Montelukast Sodium (Montelukast 10 Mg Tablet) 10 mg PO HS [facility] Last Admin: 06/30/21 20:14 Dose: 10 mg Documented by: Buprenorphine Hcl 8 (Mg Tab.Subl) 1 dose SL QID [facility] Last Admin: 06/30/21 20:16 Dose: 1 dose Documented by: Ondansetron HCl (Ondansetron 4 Mg/2 Ml Vial) 4 mg IV Q4HP PRN PRN Reason: Nausea And Vomiting Clindamycin Phosphate 1% Topical Gel 1 dose TOPICAL BID [facility] Last Admin: 06/30/21 20:15 Dose: Not Given Documented by: Diclofenac Epolamine [Flector] 1.3 % Patch 12 Hour 1 dose TOPICAL BIDP PRN PRN Reason: Pain Polyethylene Glycol (Polyethylene Glycol 3350 17 Gm Packet) 17 gm PO DAILYP PRN PRN Reason: Constipation Potassium Chloride (Potassium Chloride 20 Meq Tablet) 40 meq PO UD PRN PRN Reason: Potssium is 3-3.5 Last Admin: 06/30/21 11:42 Dose: 40 meq Documented by: Potassium Chloride (Potassium Chloride 20 Meq Tablet) 40 meq PO UD PRN PRN Reason: Potassium < 3 Propranolol HCl (Propranolol 60 Mg Cap.Xl.24h) 120 mg PO [facility] Last Admin: 06/30/21 20:14 Dose: 120 mg Documented by: Quetiapine Fumarate (Quetiapine 25 Mg Tablet) 25 mg PO [facility] Last Admin: 06/30/21 20:14 Dose: 25 mg Documented by: Quetiapine Fumarate (Quetiapine 25 Mg Tablet) 25 mg PO Q4HP PRN PRN Reason: for agitation Last Admin: 06/30/21 04:26 Dose: 25 mg Documented by: Senna (Sennosides 1 Tablet) 2 tab PO DAILYP PRN PRN Reason: Constipation Sodium Chloride (0.9 % Sodium Chloride 10 Ml Syringe) 10 ml IV Q8 [facility] Last Admin: 07/01/21 05:52 Dose: Not Given Documented by: Sumatriptan Succinate (Sumatriptan Succinate 50 Mg Tablet) 100 mg PO DAILYP PRN PRN Reason: Migraine Headache Last Admin: 06/30/21 23:24 Dose: 100 mg Documented by: A/P Narrative A/P Narrative: A: *Acute Psychosis: improved *Anxiety/depression/history of manic episodes and bizarre behavior: *UTI (GNB): *HTN Urgency: home meds ARB/HCTZ/BB/clonidine -improved *Asthma: *chronic LBP: Follows with pain clinic *Sjogrens/sicca/feli positive: follows with Dr. Alvarado *Hypothyroidism: TSHwnl P: -psych consulted and follow-up outpatient -Rocephin pending UC -cont home BP meds and prn IV -pt/ot -ppx: lovenox Time Spent With Patient Time: Total time spent is greater than 50% in coordination of care (as documented) at patient's floor/unit and/or counseling patient:
[2021-07-01] MEDS: LEVOTHYROXINE 100 MCG TABLET PO SCH (07:43)
[2021-07-01] MEDS: ENOXAPARIN 40 MG/0.4 ML SYRINGE SQ SCH (08:15)
[2021-07-01] MEDS: cefTRIAXone 1 GM VIAL IV SCH (08:15)
[2021-07-01] MEDS: FLUTICASONE PROPIONATE SPRAY.NAS NS SCH (08:16)
[2021-07-01] MEDS: BUPRENORPHINE HCL 8 MG TAB.SUBL SL SCH ×2 (08:16→12:33)
[2021-07-01] MEDS: cloNIDine HCL 0.1 MG TABLET PO SCH (08:16)
[2021-07-01] MEDS: ACYCLOVIR 400 MG TABLET PO SCH ×2 (08:16→12:33)
[2021-07-01] MEDS: DOCUSATE SODIUM 100 MG CAPSULE PO SCH (08:17)
[2021-07-01 08:34] LABS: Blood Urea Nitrogen 11 mg/dL (8-23); Calcium 8.7 mg/dL (8.6-10.4); Carbon Dioxide 23 mmol/L (22-30); Chloride 107 mmol/L (96-108); Glomerular Filtration Rate 98; Glucose 94 mg/dL (70-105)
[2021-07-01] MEDS: CLINDAMYCIN PHOSPHATE 1% TOPICAL SCH (08:47)
[2021-07-01] MEDS: IMIPRAMINE 25 MG TABLET PO SCH (08:59)
[2021-07-01] MEDS ORDERED: FLU VACC QS2021-22(6MOS UP)/PF 60 MCG/0.5 ML SYRINGE IM ONE (10:00)
--- NOTE | 2021-07-01 10:12 | Discharge Summary ---
Discharge Provider Provider Patient information: Note initiated : 07/01/21 at 10:11 am Service Date, if different from initiated Date: [] Patient: Miranda Soriano 71 y/o F admitted on 06/30/21 for Altered Mental Status. Chief Complaint: [] Date of admission: 06/30/21 09:56 Discharge date: 07/01/21 Primary care physician: Doug Bentley MD Consults: 06/29/21 Consult to Physician [CONS] Stat Comment: Consulting Provider: Ramón Jc Reason For Exam: Physician to Consult 06/29/21 15:44 Consult to Physician [CONS] Routine Comment: psychosis Consulting Provider: [facility] Reason For Exam: Physician to Consult Discharge Meds Discharge Medications Home Medications albuterol sulfate 90 mcg/actuation aerosol inhaler (ProAir HFA) 2 puff INHALATION QID PRN 11/21/19 [History Confirmed 06/29/21 Last Taken Unknown] clindamycin phosphate 1 % topical gel 1 applic TOPICAL BID 11/21/19 [History Confirmed 06/29/21 Last Taken Unknown] diclofenac sodium 1 % topical gel (Voltaren) 2 g TOPICAL DIRECTED PRN g 11/21/19 [History Confirmed 06/29/21 Last Taken Unknown] fluticasone propionate 50 mcg/actuation nasal spray,suspension 1 spray INTRANASAL DAILYP PRN 11/21/19 [History Confirmed 06/29/21 Last Taken Unknown] ipratropium 0.5 mg-albuterol 3 mg (2.5 mg base)/3 mL nebulization soln 3 ml INHALATION BID PRN ml 11/21/19 [History Confirmed 06/29/21 Last Taken Unknown] phenazopyridine 200 mg tablet 200 mg PO TID 11/21/19 [History Confirmed 06/29/21 Last Taken Unknown] levothyroxine 100 mcg tablet 100 mcg PO DAILY #30 tab 09/07/20 [Rx Confirmed 06/29/21 Last Taken Unknown] estradiol 0.1 mg/24 hr semiweekly transdermal patch 1 patch TRANSDERMA 2XW #8 each 09/10/20 [Rx Confirmed 06/29/21 Last Taken Unknown] pentosan polysulfate sodium 100 mg capsule (Elmiron) 100 mg PO QID #120 cap 11/05/20 [Rx Confirmed 06/29/21 Last Taken Unknown] losartan 100 mg-hydrochlorothiazide 12.5 mg tablet 1 tab PO QDAY #90 tab 12/09/20 [Rx Confirmed 06/29/21 Last Taken Unknown] halobetasol propionate 0.05 % topical ointment 1 applic TOPICAL BID 12/15/20 [History Confirmed 06/29/21 Last Taken Unknown] multivitamin [Daily Multi-Vitamin] 3 tab PO DAILY 02/22/21 [History Confirmed 06/29/21 Last Taken Unknown] propranolol 120 mg capsule,24 hr,extended release 120 mg PO QHS #90 cap 03/09/21 [Rx Confirmed 06/29/21 Last Taken Unknown] zolpidem 10 mg tablet (Ambien) See Rx Instructions PO QHS #45 tab 04/07/21 [Rx Confirmed 06/29/21 Last Taken Unknown] triamcinolone acetonide 0.1 % dental paste See Rx Instructions .ROUTE .COMPLEX #5 g 05/17/21 [Rx Confirmed 06/29/21 Last Taken Unknown] acyclovir 800 mg tablet See Rx Instructions .ROUTE .COMPLEX #120 tab 06/01/21 [Rx Confirmed 06/29/21 Last Taken Unknown] buprenorphine HCl 8 mg sublingual tablet 8 mg SUBLINGUAL QID #120 tab 06/08/21 [Rx Confirmed 06/29/21 Last Taken Unknown] alprazolam 0.25 mg tablet 0.25 mg PO Q6HP PRN 06/29/21 [History Confirmed 06/29/21 Last Taken Unknown] baclofen 20 mg tablet 10 mg PO Q6H 06/29/21 [History Confirmed 06/29/21 Last Taken Unknown] clonidine HCl 0.1 mg tablet 0.1 mg PO BID 06/29/21 [History Confirmed 06/29/21 Last Taken Unknown] diclofenac epolamine 1.3 % transdermal 12 hour patch (Flector) 1 patch TOPICAL Q12H PRN 06/29/21 [History Confirmed 06/29/21 Last Taken Unknown] imipramine HCl 50 mg tablet 50 mg PO BID 06/29/21 [History Confirmed 06/29/21 Last Taken Unknown] ketorolac 0.5 % eye drops 1 drp OPHTHALMIC (EYE) DAILYP PRN 06/29/21 [History Confirmed 06/29/21 Last Taken Unknown] montelukast 10 mg tablet 10 mg PO DAILY 06/29/21 [History Confirmed 06/29/21 Last Taken Unknown] sumatriptan succinate 100 mg tablet (Imitrex) 100 mg PO PRN PRN 06/29/21 [History Confirmed 06/29/21 Last Taken Unknown] levofloxacin 250 mg tablet 250 mg PO Q24H #1 tab 07/01/21 [Rx Last Taken Unknown] COURSE Hospital Course Hospital course: History of present illness: Ms. Soriano is a 71 year old F EMS called because patient altered. Sustained a fall couple days ago and has not been right since per neighbors. Limited verbal response patient not head screamed yes occasionally in triage but not giving much history. Has a history of anxiety depression and a manic episode and hypothyroidism. Per history she has had altered mental status and bizarre behavior worsening over the past few days. History obtained from the neighbor [employer] student who lives with the patient. Emergency the patient had some degree of unknown mental illness for years where she did have episodes of acting manic or bizarre not sure if there is ever been any official diagnosis. The student reported that he said some bizarre episodes from time to time. Used to drink alcohol in the past but nothing in the past year per the neighbor. She was bit hypertensive which she came in and also found to have a UTI. Case was discussed with neurologist who did not feel it was hypertensive emergency or other central neurological etiology that needed further work-up or transfer -felt it was likely related to underlying psych in the setting of UTI. CT brain was unremarkable. She was afebrile and besides elevated blood pressure she had mild tachycardia but otherwise no other abnormalities on vitals. CBC and lactate unremarkable. Chemistry unimpressive other than a mild elevation in creatinine kinase likely related to her fall. Urine consistent with urinary tract infection. UDS unremarkable including alcohol. 06/30 Patient evaluated by psychiatry last night and as needed medications ordered. Patient much more clear today. 07/01 Feeling much better today. Much more clear. No overnight event or new complaints. Patient wanting to go home. We will send her home on Levaquin for her urinary tract infection, awaiting for final urine culture. A: *Acute Psychosis: improved, f/u with psychiatry *Anxiety/depression/history of manic episodes and bizarre behavior: *UTI (GNB): *HTN Urgency: home meds ARB/HCTZ/BB/clonidine -improved *Asthma: *chronic LBP: Follows with pain clinic *Sjogrens/sicca/feli positive: follows with Dr. Alvarado *Hypothyroidism: TSHwnl Discharge diagnosis: Acute psychosis UTI Secondary discharge diagnosis: Hypertension asthma chronic low back pain Sjogren's Marques and a positive hypothyroidism anxiety depression Time Spent with Patient Time attestation: Total time spent providing and/or coordinating discharge services: EXAM Constitutional Vitals: Temp Pulse Resp BP Pulse Ox 97.8 F 71 12 148/91 96 07/01/21 03:20 07/01/21 03:20 07/01/21 03:20 07/01/21 03:20 07/01/21 03:20 Discharge Data Data Completed and Pending Labs on day of discharge: Labs from last 24 hours 07/01/21 05:35 Sodium 140 Potassium 4.0 Chloride 107 Carbon Dioxide 23 Anion Gap 10.0 BUN 11 Creatinine 0.5 L GFR Calculation 98 Glucose 94 Calcium 8.7 Preliminary micro results at discharge 06/29/21 03:32 Blood Culture - Preliminary Blood 06/29/21 03:25 Blood Culture - Preliminary Blood 06/29/21 02:09 Urine Culture - Preliminary Urine - Catheterized Gram negative bacillus Discharge Plan Patient/Caregiver Discharge Instructions Activity: increase activity as tolerated Diet: Regular Diet Activity Restrictions/Additional Instructions: Referral to see psychiatrist in 3 to 14 days. Prescriptions: New levofloxacin 250 mg tablet 250 mg PO Q24H Qty: 1 0RF Rx Instructions: take on 07/02/2021 Continued levothyroxine 100 mcg tablet 100 mcg PO DAILY Qty: 30 11RF Elmiron 100 mg capsule 100 mg PO QID Qty: 120 11RF Rx Instructions: 1 po QID losartan-hydrochlorothiazide 100-12.5 mg tablet 1 tab PO QDAY Qty: 90 5RF Rx Instructions: 1 po Qday propranolol 120 mg capsule,extended release 24 hr 120 mg PO QHS Qty: 90 1RF Rx Instructions: 1 po QHS zolpidem [Ambien] 10 mg tablet See Rx Instructions PO QHS Qty: 45 2RF Rx Instructions: 10mg, 1-2 tabs PO QHS; triamcinolone acetonide 0.1 % paste See Rx Instructions .ROUTE .COMPLEX Qty: 5 4RF Dose Instruction: APPLY TWICE DAILY AFTER FOOD / DRINK OR ORAL HYGIENE Rx Instructions: APPLY TWICE DAILY AFTER FOOD / DRINK OR ORAL HYGIENE acyclovir 800 mg tablet See Rx Instructions .ROUTE .COMPLEX Qty: 120 5RF Dose Instruction: TAKE 1 TABLET BY MOUTH FOUR TIMES DAILY Rx Instructions: TAKE 1 TABLET BY MOUTH FOUR TIMES DAILY buprenorphine HCl 8 mg tablet, sublingual 8 mg SUBLINGUAL QID Qty: 120 0RF phenazopyridine 200 mg tablet 200 mg PO TID 0RF Rx Instructions: 1 po TID diclofenac sodium [Voltaren] 1 % gel 2 g TOPICAL DIRECTED PRN (Reason: Pain) 0RF Rx Instructions: apply to affected area as directed fluticasone propionate 50 mcg/actuation spray,suspension 1 spray INTRANASAL DAILYP PRN (Reason: Nasal Congestion) 0RF Label Comments: 1 spray INTRANASAL ; albuterol sulfate [ProAir HFA] 90 mcg/actuation HFA aerosol inhaler 2 puff INHALATION QID PRN (Reason: Wheezing) 0RF Rx Instructions: 2 puffs QID PRN on HOLD clindamycin phosphate 1 % gel 1 applic TOPICAL BID 0RF Rx Instructions: apply to affected area twice daily ipratropium-albuterol 0.5 mg-3 mg(2.5 mg base)/3 mL solution for nebulization 3 ml INHALATION BID PRN (Reason: Wheezing) 0RF Rx Instructions: 1 vial in nebulizer BID x 7 days multivitamin [Daily Multi-Vitamin] 3 tab PO DAILY 0RF estradiol 0.1 mg/24 hr patch semiweekly 1 patch TRANSDERMA 2XW Qty: 8 12RF Rx Instructions: apply 1 patch for 3 days alternating with 1 patch for 4 days each week for 3 wks per 4-wk cycle halobetasol propionate 0.05 % ointment 1 applic topical BID 0RF imipramine HCl 50 mg tablet 50 mg PO BID 0RF clonidine HCl 0.1 mg tablet 0.1 mg PO BID 0RF baclofen 20 mg tablet 10 mg PO Q6H 0RF alprazolam 0.25 mg tablet 0.25 mg PO Q6HP PRN (Reason: Anxiety) 0RF montelukast 10 mg tablet 10 mg PO DAILY 0RF ketorolac 0.5 % drops 1 drp OPHTHALMIC (EYE) DAILYP PRN (Reason: ocular discomfort) 0RF Rx Instructions: PRN both eyes for ocular discomfort. sumatriptan succinate [Imitrex] 100 mg tablet 100 mg PO PRN PRN (Reason: Migraine Headache) 0RF Rx Instructions: 1 po PRN diclofenac epolamine [Flector] 1.3 % patch 12 hour 1 patch TOPICAL Q12H PRN (Reason: Pain) 0RF Rx Instructions: apply patch to affected area every 12 hours Discontinued cephalexin 500 mg capsule 500 mg PO TID Qty: 30 1RF Follow Up Plan Follow up with: Doug Bentley MD [Primary Care Provider] - Patient Disposition: Home, Self-Care Prognosis: Fair Overall status at discharge: patient is progressing back to baseline Discharge Orders: Discharge Order (Routine); Ordered 07/01/21 Ordered By: Ramón Jc
[2021-07-01] MEDS ORDERED: MELATONIN 3 MG TABLET PO SCH (21:00)
--- NOTE | 2021-07-02 09:40 | EKG ---
[facility] Test Date: 2021-06-29 Pat Name: Miranda Soriano Department: ED Room: Gender: Female [employer] Builder: [id number] : 1950 Requested By: Nickolas Conklin Order Number: [id number] Reading MD: Rubén Ren M.D. Measurements Intervals [place] Rate: 119 P: 54 LA: 148 QRS: 6 QRSD: 80 T: -3 QT: 320 QTc: 451 Interpretive Statements SINUS TACHYCARDIA ATRIAL PREMATURE COMPLEX NONSPECIFIC T ABNORMALITIES, INFERIOR LEADS LOW VOLTAGE IN FRONTAL LEADS Electronically Signed On 07-02-2021 9:39:52 PST by Rubén Ren M.D. /[email or web address]/[id number]
--- NOTE | 2021-07-02 09:54 | EKG ---
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 Measurements Intervals [place] Rate: 62 P: 34 DE: 156 QRS: 8 QRSD: 68 T: 23 QT: 424 QTc: 431 Interpretive Statements SINUS RHYTHM Poor R wave progression. Electronically Signed On 07-02-2021 9:54:11 PST by Rubén Ren M.D. /[email or web address]/[id number]
== END 2021-07-01 15:35 | disposition home or self-care (01) | DRG 885 ==
LOC: ED 01:14 → ICU 01:14 → MEDSUR 06-30 22:49
PROVIDERS: ADMIT Internal Medicine; ATTEND Internal Medicine